=== PATIENT | male | born 1960 | race Two or more races ===

== ENCOUNTER → 2020-08-23 15:06 | Outpatient (BNVA) | payer OTHER, SELFPAY | PROVIDERS: PCP Family Medicine; Visit Provider Internal Medicine | DX: J44.9 Chronic obstructive pulmonary disease, unspecified (principal); J30.9 Allergic rhinitis, unspecified | CPT/HCPCS: 99212 ==

== ENCOUNTER → 2020-08-24 14:26 | Outpatient (BNVA) | payer OTHER, SELFPAY | PROVIDERS: PCP Internal Medicine; Visit Provider Nurse Practitioner | DX: Z76.89 Persons encountering health services in other specified circumstances (principal) | CPT/HCPCS: Q3014 ==

== ENCOUNTER 2020-08-29 13:26 | Outpatient (REF) | payer OTHER, SELFPAY ==
[2020-08-30 13:52] LABS: Alpha 1 Anti-trypsin 143 mg/dL (83-199)
== END 2020-08-29 13:27 | disposition home or self-care (01) ==
LOC: HO.LAB 13:26
PROVIDERS: PCP Family Medicine; Visit Provider Internal Medicine
DX: J44.9 Chronic obstructive pulmonary disease, unspecified (principal)
CPT/HCPCS: 36415; 82103

== ENCOUNTER → 2021-02-14 15:48 | Outpatient (BNVA) | payer OTHER, SELFPAY | PROVIDERS: PCP Family Medicine; Visit Provider Internal Medicine | DX: J44.9 Chronic obstructive pulmonary disease, unspecified (principal); J30.9 Allergic rhinitis, unspecified | CPT/HCPCS: 99212 ==

== ENCOUNTER → 2021-02-15 14:26 | Outpatient (BNVA) | payer OTHER, SELFPAY | PROVIDERS: PCP Family Medicine; Visit Provider Nurse Practitioner | DX: K64.9 Unspecified hemorrhoids (principal); K21.9 Gastro-esophageal reflux disease without esophagitis; Z98.890 Other specified postprocedural states | CPT/HCPCS: Q3014 ==

== ENCOUNTER 2021-03-13 12:50 | Outpatient (REF) | payer OTHER, SELFPAY ==
--- NOTE | 2021-03-13 14:05 | PFT_ITS ---
INDICATION: Asthma. SPIROMETRY: The FEV1 to FVC 37% with an FEV1 of 1.03 L, which is 33% predicted and an FVC of 2.76 L, which is 68% predicted. Post bronchodilator shows significant improvement of the FVC by 27% and the FEV1 by 18%. The patient also has significant small airways disease and the maximum voluntary ventilation only 32% predicted. LUNG VOLUMES: Total lung capacity 130% predicted with residual volume of 283% predicted. DIFFUSION CAPACITY: DLCO 78% predicted. COMPARISONS: PFTs from 2019. INTERPRETATION: There is an obstructive ventilatory defect consistent with severe COPD. The patient did have a significant response to bronchodilators noted. There is also a severe decrease in maximum voluntary ventilation secondary to deconditioning and also worsening dynamic inspiratory capacity. The patient has significant air trapping and hyperinflation due to the COPD. In addition to that, there is a mild diffusion impairment. When compared to 2019, there is a significant decrease in the FVC, significant decrease in the FEV1, significant increase in the total lung capacity, and trend decrease in the diffusion capacity. Clinical correlation warranted. Chivo Mathias MD MR/MODL / [id number]
== END 2021-03-13 12:51 | disposition home or self-care (01) ==
LOC: HO.RESP 12:50
PROVIDERS: PCP Family Medicine; Visit Provider Internal Medicine
DX: J44.9 Chronic obstructive pulmonary disease, unspecified (principal)
CPT/HCPCS: 94060; 94727; 94729

== ENCOUNTER → 2021-04-10 12:57 | Outpatient (BNVA) | payer OTHER, SELFPAY | PROVIDERS: PCP Family Medicine; Visit Provider Internal Medicine | DX: J44.9 Chronic obstructive pulmonary disease, unspecified (principal); J30.9 Allergic rhinitis, unspecified | CPT/HCPCS: 99212 ==

== ENCOUNTER → 2021-07-31 15:21 | Outpatient (BNVA) | payer OTHER, SELFPAY | PROVIDERS: PCP Family Medicine; Visit Provider Internal Medicine | DX: J44.9 Chronic obstructive pulmonary disease, unspecified (principal); J30.9 Allergic rhinitis, unspecified; R05.9 Cough, unspecified | CPT/HCPCS: 99212 ==

== ENCOUNTER → 2021-08-19 13:42 | Outpatient (BNVA) | payer OTHER, SELFPAY | PROVIDERS: PCP Family Medicine; Referring Provider Family Medicine; Visit Provider Nurse Practitioner | DX: K21.9 Gastro-esophageal reflux disease without esophagitis (principal); K64.9 Unspecified hemorrhoids | CPT/HCPCS: 99212 ==

== ENCOUNTER → 2021-09-04 15:33 | Outpatient (BNVA) | payer OTHER, SELFPAY | PROVIDERS: PCP Family Medicine; Visit Provider Internal Medicine | DX: J44.9 Chronic obstructive pulmonary disease, unspecified (principal); J30.9 Allergic rhinitis, unspecified; R05.9 Cough, unspecified | CPT/HCPCS: 99212 ==

== ENCOUNTER → 2022-02-18 13:53 | Outpatient (BNVA) | payer OTHER, SELFPAY | PROVIDERS: PCP Family Medicine; Referring Provider Family Medicine; Visit Provider Nurse Practitioner | DX: K21.9 Gastro-esophageal reflux disease without esophagitis (principal); Z87.19 Personal history of other diseases of the digestive system; Z79.899 Other long term (current) drug therapy | CPT/HCPCS: 99212 ==

== ENCOUNTER → 2022-03-19 15:49 | Outpatient (BNVA) | payer OTHER, SELFPAY | PROVIDERS: PCP Family Medicine; Visit Provider Internal Medicine | DX: J44.9 Chronic obstructive pulmonary disease, unspecified (principal); J30.9 Allergic rhinitis, unspecified; R05.9 Cough, unspecified | CPT/HCPCS: 99212 ==

== ENCOUNTER → 2022-04-29 14:00 | Outpatient (BNVA) | payer OTHER, SELFPAY | PROVIDERS: PCP Family Medicine; Visit Provider Internal Medicine | DX: J44.9 Chronic obstructive pulmonary disease, unspecified (principal); J30.9 Allergic rhinitis, unspecified; R05.9 Cough, unspecified; R53.83 Other fatigue | CPT/HCPCS: 99212 ==

== ENCOUNTER → 2022-09-17 15:55 | Outpatient (BNVA) | payer OTHER, SELFPAY | PROVIDERS: PCP Family Medicine; Visit Provider Internal Medicine | DX: J44.9 Chronic obstructive pulmonary disease, unspecified (principal); J30.9 Allergic rhinitis, unspecified | CPT/HCPCS: 99212 ==

== ENCOUNTER → 2022-10-09 16:04 | Outpatient (BNVA) | payer OTHER, SELFPAY | PROVIDERS: PCP Family Medicine; Visit Provider Nurse Practitioner | DX: K21.9 Gastro-esophageal reflux disease without esophagitis (principal) | CPT/HCPCS: 99212 ==

== ENCOUNTER 2023-03-11 16:02 | Outpatient (AMB) | payer OTHER, SELFPAY ==
[2023-03-11 16:10] VITALS: BP 112/70; PULSE 79; O2SAT 97; BMI 23.1
--- NOTE | 2023-03-11 16:10 | A.OFFVIS_ITS ---
Intake Vital Signs 03/11/23 16:10 Height 5 ft 6 in Weight 143 lb 4.807 oz BMI 23.1 BP 112/70 Blood Pressure Location Lt brachial Position Sitting Pulse 79 Pulse Source Pulse Oximeter Pulse Oximetry (%) 97 Oxygen Delivery Method Room Air Intake Visit Reasons: copd Intake Note: pt is here for follow up and doing good, has a cough but only a few times. pt would like to have a mask for nebulizer use. 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 HE HAS CHRONIC ALLERGIC RHINITIS AND ASTHMA/COPD. WITH THE CURRENT REGIMEN HIS BREATHING IS WELL CONTROLLED, HE CONTINUES TO HAVE NASAL CONGESTION WITH SOME POSTNASAL DRIP. SOMETIMES HE USES IPRATROPIUM ALBUTEROL IN THE NEBULIZER, AND IS ASKING IF HE CAN GET A FACEMASK TO USE THE NEBULIZER. ANYWAY THE BREATHING STATUS HAS REMAINED VERY STABLE. [facility] Medical History Allergic rhinitis Asthma-COPD overlap syndrome Cough Fatigue Surgical History Hx of cholecystectomy Hx of colonoscopy Family History Family/Other No problems noted. Social History Alcohol intake: current Alcohol intake frequency: holidays/special occasions only Patient Tobacco Use Status: Former Tobacco user Review of Systems Const All systems reviewed & are unremarkable except as noted in HPI and below Eyes Reports no additional complaints ENT Reports nasal congestion (Intermittent, ) Card Denies chest pain, Denies irregular heart rhythm and Denies leg edema Resp Reports as per HPI GI Reports no additional complaints Reports no additional complaints Musc Reports back pain Skin/Breast Reports system reviewed and no additional complaints, except as documented Neuro Reports no additional complaints Psych Reports no additional complaints Endo Reports no additional complaints Aller/Immun Reports no additional complaints Physical Exam Vital Signs: Last Vital Signs Pulse 79 03/11/23 16:10 BP 112/70 03/11/23 16:10 Pulse Ox 97 03/11/23 16:10 Oxygen Delivery Method Room Air 03/11/23 16:10 BMI result Body Mass Index 23.1 Const General: healthy appearing (But of a thin build), comfortable, no acute distress, alert and awake Orientation/consciousness: patient oriented x3 HEENT Head: Yes normal to inspection General nose exam: No nasal polyps present and No nasal discharge present Face and sinus: Yes sinuses nontender Mouth: oropharynx normal Throat: Yes posterior oropharynx normal Eyes General: appearance normal, both eyes and all related structures Neck Neck: Yes normal visual inspection, Yes no lymphadenopathy, Yes trachea midline and Yes no JVD Thyroid: Thyroid normal Chest Chest palpation & inspection: normal inspection of the chest, normal palpation of entire chest wall and no tenderness Resp Other: Percussion note is hyper-resonant. Breath sounds are distant with prolonged expiratory phase. No wheezes rhonchi or crepitations are heard. Cardio Palpation: normal PMI Rate: regular rate Rhythm: regular rhythm Heart sounds: no gallops and no murmurs GI Palpation (GI): Soft to palpation, nontender, No hepatosplenomegaly present and no masses Auscultation: normal bowel sounds Back/Spine/Pelvis Thoracic/Lumbar Spine: thoracic and lumbar spine normal to inspection Skin General skin exam: no rashes or lesions noted Neuro General: patient oriented x3 and no focal motor deficits Cranial nerves: Yes CN's II-XII intact bilaterally Extrem General: Yes normal to inspection, Yes no clubbing, cyanosis or edema and Yes no calf tenderness Psych Appearance: grossly normal and well kempt Speech and movement: Normal speech and movement present Assessment & Plan Assessment & Plan (1) Asthma-COPD overlap syndrome: Comment: HE DOES HAVE RATHER SEVERE DEGREE OF COPD/ASTHMA.OVERLAP SYNDROME . CLINICALLY HE IS DOING VERY WELL ON HIS CURRENT REGIMEN, EXCEPT FOR INTERMITTENT BOUTS OF COUGH . HIS DESCRIBED SYMPTOMS ARE EXPECTED, BECAUSE OF THE SEVERITY OF HIS COPD. TX CONTINUE WIXELA 500-50 INHALATION B.I.D. DUONEB . Solution in the nebulizer use 3 times a day regularly. Explained that he is better off using the Nebulizer with a mouth piece than the face mask . VENTOLIN HFA 2 PUFFS Q 4-6 HOURS ONLY P.R.N., MUCINEX 600 MG B.I.D. IT IS OTC ,, AND HE IS ADVISED TO USE IT ONLY PRN . Code(s): J44.9 - Chronic obstructive pulmonary disease, unspecified (2) Allergic rhinitis: Comment: HE HAS MILD ALLERGIC RHINITIS AND IS WELL CONTROLLED. TX MONTELUKAST 10 MG DAILY TO CONTINUE FLONASE 2 SPRAY EACH NOSTRIL DAILY. Code(s): J30.9 - Allergic rhinitis, unspecified (3) Cough: Comment: COUGH IS DUE TO ALLERGIC RHINITIS AND CHRONIC OBSTRUCTIVE PULMONARY DISEASE. TX : as under asthma/copd Code(s): R05.9 - Cough, unspecified Coding Level of Care Code Est Pt Level 3 (22661) Diagnoses Asthma-COPD overlap syndrome J44.9 Allergic rhinitis J30.9 Cough R05.9
== END 2023-03-11 16:25 | disposition home or self-care (01) ==
PROVIDERS: PCP Family Medicine; Visit Provider Internal Medicine
DX: J44.9 Chronic obstructive pulmonary disease, unspecified (principal); J30.9 Allergic rhinitis, unspecified; R05.9 Cough, unspecified
CPT/HCPCS: 99213

== ENCOUNTER → 2023-03-11 16:02 | Outpatient (BNVA) | payer OTHER, SELFPAY | PROVIDERS: Visit Provider Internal Medicine | DX: J44.9 Chronic obstructive pulmonary disease, unspecified (principal); J30.9 Allergic rhinitis, unspecified; R05.9 Cough, unspecified | CPT/HCPCS: 99212 ==

== ENCOUNTER 2023-04-24 14:04 | Outpatient (AMB) | payer OTHER, SELFPAY ==
[2023-04-24 14:07] VITALS: BP 106/65; PULSE 80; BMI 23.2
--- NOTE | 2023-04-24 14:07 | MHC.OFFVIS ---
Intake Vital Signs 04/24/23 14:07 Height 5 ft 6 in Weight 143 lb 11.862 oz BMI 23.2 BP 106/65 Blood Pressure Location Lt brachial Position Sitting Pulse 80 Intake Visit Reasons: 6 months f/u GERD Intake Note: Patient presents to in office visit today in 6 months follow up of GERD. CC: Patient reports doing well and denies having any new GI symptoms or concerns today. 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 His bowels are also moving w/o problem. He remains satisfied with his regimen. Return office visit in 6 months. Medications: Refilled famotidine (Pepcid ) 40 mg PO BID 30 d ays 60 tabs 6RF TODAY'S VISIT [place]ian #Addy Henderson He continues to do well on the bid famotidine. His bowels are also moving w/o problem. He remains satisfied with his regimen. No problems with hemorrhoids either. ROV 6 mos. PFSH Medical History Fatigue Cough Allergic rhinitis Asthma-COPD overlap syndrome Surgical History (Updated 06/04/23 @ 18:54 by GABBY Rose) Hx of colonoscopy Hx of cholecystectomy Family History Family/Other No problems noted. Social History Alcohol intake: current Alcohol intake frequency: holidays/special occasions only Patient Tobacco Use Status: Former Tobacco user Review of Systems Const Denies fatigue, Denies fever(s), Denies night sweats, Denies poor appetite and Denies weight loss ENT Reports Normal hearing present, Denies dental pain, Denies dysphagia, Denies hearing loss, Denies mouth pain, Denies odynophagia, Denies throat swelling, Denies tongue swelling and Reports other (Dentition adequate) Card Reports no additional complaints Resp Reports no additional complaints GI Denies abdominal pain, Denies melena, Denies bloating, Denies hematochezia, Denies constipation, Denies GI cramping, Denies dysphagia, Denies excessive flatus, Denies early satiety, Reports heartburn, Denies diarrhea, Denies nausea, Denies odynophagia, Denies vomiting and Denies hematemesis Skin/Breast Denies pruritus, Denies lesions, Denies rash and Denies jaundice Neuro Reports Normal hearing present and Denies Abnormal speech present Endo Denies fatigue Aller/Immun Denies throat swelling and Denies tongue swelling Physical Exam Vital Signs: Last Vital Signs Pulse 80 04/24/23 14:07 BP 106/65 04/24/23 14:07 BMI result Body Mass Index 23.2 Const General: cooperative, no acute distress, well developed and well groomed Nutritional Appearance: average body habitus and well nourished Orientation/consciousness: oriented to person, oriented to place and oriented to time Limitations: language barrier HEENT Head: Yes normocephalic and Yes atraumatic Eyes General: appearance normal, both eyes and all related structures Pupils: Equal, round and reactive pupils present Neck Neck: Yes normal visual inspection and Yes no lymphadenopathy Thyroid: Thyroid normal Resp Effort & Inspection: normal respiratory effort and able to speak in complete sentences Auscultation: clear to auscultation bilaterally Cardio Rate: regular rate Rhythm: regular rhythm Heart sounds: Normal, physiologic split S2 sound present Peripheral pulses: radial pulses present and posterior tibial pulses present GI Inspection: No distended and No Abdominal panniculus present Palpation (GI): Soft to palpation, nontender, no guarding, not rigid and No hepatosplenomegaly present Percussion: Yes normal to percussion Auscultation: normal bowel sounds Rectal Exam - Male: Yes deferred Skin General skin exam: no rashes or lesions noted, turgor normal, skin not dry, no jaundice, No spider nevi and no striae Rashes: no rashes Nails: normal Neuro General: oriented to person, oriented to place and oriented to time Cranial nerves: Yes Equal, round and reactive pupils present and Yes Normal hearing present Speech: No Abnormal speech present Extrem General: Yes normal to inspection, No clubbing, No cyanosis and No edema Psych Appearance: grossly normal and well kempt Mental Status: mental status grossly normal Speech and movement: Normal speech and movement present Affect: normal affect Attitude: cooperative Thought process: Normal thought process present and not confabulating Thought content: Normal thought content present Insight: Limited insight present (Psych) Judgement: Limited judgement present (Psych) Assessment & Plan Assessment & Plan (1) GERD (gastroesophageal reflux disease): Code(s): K21.9 - Gastro-esophageal reflux disease without esophagitis Plan: Michael Arambula LIve He continues to do well on the bid famotidine. His bowels are also moving w/o problem. He remains satisfied with his regimen. No problems with hemorrhoids either. ROV 6 mos. (2) Bleeding hemorrhoids: Comment: Had hemorrhoidectomy and no more bleeding. Code(s): K64.9 - Unspecified hemorrhoids Plan Michael Arambula LIve He continues to do well on the bid famotidine. His bowels are also moving w/o problem. He remains satisfied with his regimen. No problems with hemorrhoids either. ROV 6 mos. Medications: Refilled famotidine (Pepcid) 40 mg PO BID 60 tabs 6RF 30 days Coding Level of Care Code Est Pt Level 3 (26274) Diagnoses GERD (gastroesophageal reflux disease) K21.9 Bleeding hemorrhoids K64.9
== END 2023-04-24 14:20 | disposition home or self-care (01) ==
PROVIDERS: Visit Provider Nurse Practitioner
DX: K21.9 Gastro-esophageal reflux disease without esophagitis (principal); K64.9 Unspecified hemorrhoids
CPT/HCPCS: 99213

== ENCOUNTER → 2023-04-24 14:04 | Outpatient (BNVA) | payer OTHER, SELFPAY | PROVIDERS: Visit Provider Nurse Practitioner | DX: K21.9 Gastro-esophageal reflux disease without esophagitis (principal); Z90.49 Acquired absence of other specified parts of digestive tract; Z98.890 Other specified postprocedural states | CPT/HCPCS: 99212 ==

== ENCOUNTER 2023-10-13 14:12 | Outpatient (AMB) | payer OTHER, SELFPAY ==
--- NOTE | 2023-10-13 14:23 | MHC.OFFVIS ---
Intake Vital Signs 10/13/23 14:24 Height 5 ft 6 in Weight 144 lb 6.444 oz BMI 23.3 BP 110/70 Blood Pressure Location Lt brachial Position Sitting Pulse 80 Pulse Source Pulse Oximeter Pulse Oximetry (%) 95 Oxygen Delivery Method Room Air Intake Visit Reasons: copd Intake Note: pt is here for follow upand states he id little tight, with some wheeze and cough, especially wheezing, please try sending in generic advair to check for coverage Assistant Credit Manager Required: Yes Assistant Credit Manager Name: [id number] Allergies No Known Allergies [No Known Allergies*] Allergy (Verified 10/13/23 14:38) Medication List - Last Reconciled 10/13/23 by Chelsey Kim MD albuterol sulfate 90 mcg/actuation (Ventolin HFA) 2 puffs PO Q6H PRN famotidine (Pepcid) 40 mg PO BID 30 days fluticasone propion-salmeterol 500-50 mcg/dose 1 ea PO BID ipratropium-albuterol 0.5 mg-3 mg(2.5 mg base)/3 mL 3 mL inhalation TID loratadine 10 mg PO DAILY montelukast 10 mg PO BEDTIME Do you need a note to return to daycare/school/sports/work: No HPI copd HPI Details 62 years old Gambian-speaking gentleman is here for 6 months follow-up. He is being treated for chronic allergic rhinitis and asthma/COPD overlap syndrome. His main issue is that he gets frequent bouts of nasal congestion, which is somewhat worse now in the spring season. He also gets intermittent cough, but no wheezing. He is short of breath with he walks fast or climbs stairs but not any worse than before. He uses his meds regularly, looking for generic version of Advair. PFSH Medical History Fatigue Cough Allergic rhinitis Asthma-COPD overlap syndrome Surgical History Hx of colonoscopy Hx of cholecystectomy Family History Family/Other No problems noted. Social History Alcohol intake: current Alcohol intake frequency: holidays/special occasions only Patient Tobacco Use Status: Former Tobacco user Review of Systems Const All systems reviewed & are unremarkable except as noted in HPI and below Eyes Reports no additional complaints ENT Reports nasal congestion (Intermittent, ) Card Denies chest pain, Denies irregular heart rhythm and Denies leg edema Resp Reports as per HPI GI Reports no additional complaints Reports no additional complaints Musc Reports back pain Skin/Breast Reports system reviewed and no additional complaints, except as documented Neuro Reports no additional complaints Psych Reports no additional complaints Endo Reports no additional complaints Aller/Immun Reports no additional complaints Physical Exam Vital Signs: Last Vital Signs Pulse 80 10/13/23 14:24 BP 110/70 10/13/23 14:24 Pulse Ox 95 10/13/23 14:24 Oxygen Delivery Method Room Air 10/13/23 14:24 BMI result Body Mass Index 23.3 Const General: healthy appearing (But of a thin build), comfortable, no acute distress, alert and awake Orientation/consciousness: patient oriented x3 HEENT Head: Yes normal to inspection General nose exam: No nasal polyps present and No nasal discharge present Face and sinus: Yes sinuses nontender Mouth: oropharynx normal Throat: Yes posterior oropharynx normal Eyes General: appearance normal, both eyes and all related structures Neck Neck: Yes normal visual inspection, Yes no lymphadenopathy, Yes trachea midline and Yes no JVD Thyroid: Thyroid normal Chest Chest palpation & inspection: normal inspection of the chest, normal palpation of entire chest wall and no tenderness Resp Other: Percussion note is hyper-resonant. Breath sounds are distant with prolonged expiratory phase. No wheezes rhonchi or crepitations are heard. Cardio Palpation: normal PMI Rate: regular rate Rhythm: regular rhythm Heart sounds: no gallops and no murmurs GI Palpation (GI): Soft to palpation, nontender, No hepatosplenomegaly present and no masses Auscultation: normal bowel sounds Back/Spine/Pelvis Thoracic/Lumbar Spine: thoracic and lumbar spine normal to inspection Skin General skin exam: no rashes or lesions noted Neuro General: patient oriented x3 and no focal motor deficits Cranial nerves: Yes CN's II-XII intact bilaterally Extrem General: Yes normal to inspection, Yes no clubbing, cyanosis or edema and Yes no calf tenderness Psych Appearance: grossly normal and well kempt Speech and movement: Normal speech and movement present Assessment & Plan Assessment & Plan (1) Asthma-COPD overlap syndrome: Comment: HE DOES HAVE RATHER SEVERE DEGREE OF COPD/ASTHMA.OVERLAP SYNDROME . CLINICALLY HE IS DOING WELL ON HIS CURRENT REGIMEN, EXCEPT FOR INTERMITTENT BOUTS OF COUGH . THE DESCRIBED SYMPTOMS ARE EXPECTED, BECAUSE OF THE SEVERITY OF HIS COPD. Code(s): J44.9 - Chronic obstructive pulmonary disease, unspecified Plan: TX CONTINUE WIXELA 500-50 INHALATION B.I.D. DUONEB . Solution in the nebulizer use 3 times a day regularly. Explained that he is better off using the Nebulizer with a mouth piece than the face mask . VENTOLIN HFA 2 PUFFS Q 4-6 HOURS ONLY P.R.N., MUCINEX 600 MG B.I.D. IT IS OTC ,, AND HE IS ADVISED TO USE IT ONLY PRN . (2) Allergic rhinitis: Comment: HE HAS MILD ALLERGIC RHINITIS AND IS WELL CONTROLLED. Code(s): J30.9 - Allergic rhinitis, unspecified Plan: TX MONTELUKAST 10 MG DAILY TO CONTINUE FLONASE 2 SPRAY EACH NOSTRIL DAILY. (3) Cough: Comment: COUGH IS DUE TO ALLERGIC RHINITIS AND CHRONIC OBSTRUCTIVE PULMONARY DISEASE. Code(s): R05.9 - Cough, unspecified Plan: [place] : as under asthma/copd Coding Level of Care Code Est Pt Level 3 (77310) Diagnoses Asthma-COPD overlap syndrome J44.9 Allergic rhinitis J30.9 Cough R05.9
[2023-10-13 14:24] VITALS: BP 110/70; PULSE 80; O2SAT 95; BMI 23.3
== END 2023-10-13 14:41 | disposition home or self-care (01) ==
PROVIDERS: PCP Family Medicine; Visit Provider Internal Medicine
DX: J44.9 Chronic obstructive pulmonary disease, unspecified (principal); J30.9 Allergic rhinitis, unspecified; R05.9 Cough, unspecified
CPT/HCPCS: 99213

== ENCOUNTER → 2023-10-13 14:12 | Outpatient (BNVA) | payer OTHER, SELFPAY | PROVIDERS: PCP Family Medicine; Visit Provider Internal Medicine | DX: J44.9 Chronic obstructive pulmonary disease, unspecified (principal); J30.9 Allergic rhinitis, unspecified; R05.9 Cough, unspecified; Z79.899 Other long term (current) drug therapy | CPT/HCPCS: 99212 ==

== ENCOUNTER 2023-11-24 15:40 | Outpatient (AMB) | payer OTHER, SELFPAY ==
--- NOTE | 2023-11-24 15:44 | MHC.OFFVIS ---
Vital Signs 11/24/23 15:47 Height 5 ft 6 in Weight 143 lb 4.807 oz BMI 23.1 Blood Pressure Location Rt brachial Position Sitting Intake Visit Reasons: Follow up 6 months Intake Note: Patient in office in office today in 6 months follow up of GERD. CC: No complains today, patient states that his symptoms are well manage with medications. Relationship Assoc Required: No Accompanied by: Spouse Allergies No Known Allergies [No Known Allergies*] Allergy (Verified 11/24/23 15:49) HPI HPI Follow up 6 months: Details: Assessment & Plan (1) GERD (gastroesophageal reflux disease): Code(s): K21.9 - Gastro-esophageal reflux disease without esophagitis Plan Prydeinig #Lesa live He continues to do well on the bid famotidine. His bowels are also moving w/o problem. He remains satisfied with his regimen. Return office visit in 6 months. Medications: Refilled famotidine (Pepcid) 40 mg PO BID 30 days 60 tabs 6RF TODAY'S VISIT Prydeinig #Mariposa Smith He is here today with his who is supportive. He continues to do well on his famotidine twice a day. He is also careful to watch what he eats avoid to greasy food, and avoid GERD triggers. He has no new medical problems to tell us about today. He continues to be quite happy with his GI regimen. ROV 6 mos. PFSH Medical History Fatigue Cough Allergic rhinitis Asthma-COPD overlap syndrome Surgical History Hx of colonoscopy Hx of cholecystectomy Family History Family/Other No problems noted. Social History Alcohol intake: current Alcohol intake frequency: holidays/special occasions only Patient Tobacco Use Status: Former Tobacco user Review of Systems Const Denies fatigue, Denies fever(s), Denies night sweats, Denies poor appetite and Denies weight loss ENT Reports Normal hearing present, Denies dental pain, Denies dysphagia, Denies hearing loss, Denies mouth pain, Denies odynophagia, Denies throat swelling, Denies tongue swelling and Reports other (Dentition adequate) Card Reports no additional complaints Resp Reports no additional complaints GI Details: Denies abdominal pain, Denies melena, Denies bloating, Denies hematochezia, Denies constipation, Denies GI cramping, Denies dysphagia, Denies excessive flatus, Denies early satiety, Reports heartburn, Denies diarrhea, Denies nausea, Denies odynophagia, Denies vomiting and Denies hematemesis Skin/Breast Denies pruritus, Denies lesions, Denies rash and Denies jaundice Neuro Reports Normal hearing present and Denies Abnormal speech present Endo Denies fatigue Aller/Immun Denies throat swelling and Denies tongue swelling Physical Exam Vital Signs: BMI result Body Mass Index 23.1 Const General: cooperative, no acute distress, well developed and well groomed Nutritional Appearance: average body habitus and well nourished Orientation/consciousness: oriented to person, oriented to place and oriented to time Limitations: language barrier HEENT Head: Yes normocephalic and Yes atraumatic Eyes General: appearance normal, both eyes and all related structures Pupils: Equal, round and reactive pupils present Neck Neck: Yes normal visual inspection and Yes no lymphadenopathy Thyroid: Thyroid normal Resp Effort & Inspection: normal respiratory effort and able to speak in complete sentences Auscultation: clear to auscultation bilaterally Cardio Rate: regular rate Rhythm: regular rhythm Heart sounds: Normal, physiologic split S2 sound present Peripheral pulses: radial pulses present and posterior tibial pulses present GI Inspection: No distended and No Abdominal panniculus present Palpation (GI): Soft to palpation, nontender, no guarding, not rigid and No hepatosplenomegaly present Percussion: Yes normal to percussion Auscultation: normal bowel sounds Rectal Exam - Male: Yes deferred Skin General skin exam: no rashes or lesions noted, turgor normal, skin not dry, no jaundice, No spider nevi and no striae Rashes: no rashes Nails: normal Neuro General: oriented to person, oriented to place and oriented to time Cranial nerves: Yes Equal, round and reactive pupils present and Yes Normal hearing present Speech: No Abnormal speech present Extrem General: Yes normal to inspection, No clubbing, No cyanosis and No edema Psych Appearance: grossly normal and well kempt Mental Status: mental status grossly normal Speech and movement: Normal speech and movement present Affect: normal affect Attitude: cooperative Thought process: Normal thought process present and not confabulating Thought content: Normal thought content present Insight: Fair insight present (Psych) Judgement: Fair judgement present (Psych) Assessment & Plan Assessment & Plan (1) GERD (gastroesophageal reflux disease): Code(s): K21.9 - Gastro-esophageal reflux disease without esophagitis Category: Medical Plan Prydeinig #Mariposa Live He is here today with his who is supportive. He continues to do well on his famotidine twice a day. He is also careful to watch what he eats avoid to greasy food, and avoid GERD triggers. He has no new medical problems to tell us about today. He continues to be quite happy with his GI regimen. ROV 6 mos. Medications: Refilled famotidine (Pepcid) 40 mg PO BID 60 tabs 6RF 30 days Coding Level of Care Code Est Pt Level 3 (72790) Diagnoses GERD (gastroesophageal reflux disease) K21.9
[2023-11-24 15:47] VITALS: BMI 23.1
== END 2023-11-24 16:17 | disposition home or self-care (01) ==
PROVIDERS: PCP Family Medicine; Visit Provider Nurse Practitioner
DX: K21.9 Gastro-esophageal reflux disease without esophagitis (principal)
CPT/HCPCS: 99213

== ENCOUNTER → 2023-11-24 15:40 | Outpatient (BNVA) | payer OTHER, SELFPAY | PROVIDERS: PCP Family Medicine; Visit Provider Nurse Practitioner | DX: K21.9 Gastro-esophageal reflux disease without esophagitis (principal) | CPT/HCPCS: 99212 ==

== ENCOUNTER 2024-04-07 11:14 | Outpatient (REF) | payer OTHER, SELFPAY ==
[2024-04-07 12:59] LABS: MANUAL DIFF FLAG NO
[2024-04-07 13:07] LABS: Basophils Percent Auto 0.3 % (0-2); Eosinophils Absolute Auto 0.1 X10*3/uL (0.0-0.4); Eosinophils Percent Auto 2.1 % (0-4); Hematocrit 45.1 % (42.0-52.0); Hemoglobin 14.5 g/dl (14.0-18.0); Imm Gran Abs Auto 0.01 X10*3/uL (0.00-0.03); Imm Gran Pct Auto 0.1 % (0.0-0.4); Lymphocytes Absolute Auto 1.8 X10*3/uL (1.2-4.9); Lymphocytes Percent Auto 26.8 % (20-40); Mean Corpuscular HGB Conc 32.2 g/dl (31.0-36.0); Mean Corpuscular Hemoglobin 30.9 pg (27.0-33.0); Monocytes Absolute Auto 0.7 X10*3/uL (0.1-1.2); Monocytes Percent Auto 10.8 % (2-11); Neutrophils Absolute Auto 4.1 x10*3/uL (2.0-8.3); Neutrophils Percent Auto 59.9 % (45-73); Platelet Count 317 X10*3/uL (160-400); Red Cell Distribution Width 14.3 % (11.0-16.0); White Blood Count 6.8 X10*3/uL (4.8-10.8)
[2024-04-07 13:28] LABS: Alanine Aminotransferase 15 U/L (0-40); Albumin Level 4.4 g/dL (3.5-5.0); Alkaline Phosphatase 63 U/L (39-117); Anion Gap 11 (12-20); Aspartate Amino Transferase 17 U/L (5-37); Bilirubin Total 0.6 mg/dL (0.0-1.0); Blood Urea Nitrogen 15 mg/dL (9-16); Carbon Dioxide 28 mmol/L (22-29); Chloride 108 mmol/L (96-108); Cholesterol 176 mg/dL (<200); Estimated Glomerular Filt Rate > 60; Glucose Random 111 mg/dL (60-115); HDL Cholesterol 77 mg/dL (>40); LDL Cholesterol Calculated 86 mg/dL (<100); Potassium 4.3 mmol/L (3.3-5.1); Sodium 143 mmol/L (135-145); Total Protein 7.1 g/dL (6.5-8.0); Triglycerides 68 mg/dL (<150)
== END 2024-04-07 11:15 | disposition home or self-care (01) ==
LOC: HO.HHCL 11:14
PROVIDERS: Visit Provider Family Medicine
DX: Z13.9 Encounter for screening, unspecified (principal)
CPT/HCPCS: 36415; 80053; 80061; 85025

== ENCOUNTER 2024-04-12 14:18 | Outpatient (AMB) | payer OTHER, SELFPAY ==
[2024-04-12 14:24] VITALS: BP 102/64; PULSE 81; O2SAT 92; BMI 22.4
--- NOTE | 2024-04-12 14:24 | A.OFFVIS_ITS ---
Vital Signs 04/12/24 14:24 Height 5 ft 6 in Weight 139 lb BMI 22.4 BP 102/64 Blood Pressure Location Lt brachial Position Sitting Pulse 81 Pulse Source Pulse Oximeter Pulse Oximetry (%) 92 Oxygen Delivery Method Room Air Intake Visit Reasons: COPD Intake Note: pt is here for follow up and states his breathing is good, he does have some short of breath in am, he takes meds and treatment and goes about his day. Golf Course Architect Required: Yes Golf Course Architect Services: Golf Course Architect Present Golf Course Architect Name: Ana Allergies No Known Allergies [No Known Allergies*] Allergy (Verified 04/12/24 14:39) Medication List - Last Reconciled 04/12/24 by Chelsey Kim MD albuterol sulfate 90 mcg/actuation (Ventolin HFA) 2 puffs PO Q6H PRN famotidine (Pepcid) 40 mg PO BID 30 days fluticasone propion-salmeterol 500-50 mcg/dose 1 ea PO BID ipratropium-albuterol 0.5 mg-3 mg(2.5 mg base)/3 mL 3 mL inhalation TID loratadine 10 mg PO DAILY montelukast 10 mg PO BEDTIME Do you need a note to return to daycare/school/sports/work: No HPI HPI COPD: Details: THIS 63 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 HE IS BEING TREATED FOR ASTHMA/CHRONIC OBSTRUCTIVE PULMONARY DISEASE AND ALLERGIC RHINITIS. HE SAY IS LONG HE IS USING HIS MEDS HE IS. OKAY AND STABLE HE HAS HAD NO RECENT RESPIRATORY INFECTION. THERE IS NO ACTIVE NASAL CONGESTION. HE HAS INTERMITTENT COUGH, AND GETS SHORT OF BREATH ON WALKING AROUND. HE HAS HAD NO ATTACKS OF ASTHMA. [facility] Medical History Fatigue Cough Allergic rhinitis Asthma-COPD overlap syndrome Surgical History Hx of colonoscopy Hx of cholecystectomy Family History Family/Other No problems noted. Social History Alcohol intake: current Alcohol intake frequency: holidays/special occasions only Patient Tobacco Use Status: Former Tobacco user Review of Systems Const All systems reviewed & are unremarkable except as noted in HPI and below Eyes Reports no additional complaints ENT Reports nasal congestion (Intermittent, ) Card Denies chest pain, Denies irregular heart rhythm and Denies leg edema Resp Reports as per HPI GI Reports no additional complaints Reports no additional complaints Musc Reports back pain Skin/Breast Reports system reviewed and no additional complaints, except as documented Neuro Reports no additional complaints Psych Reports no additional complaints Endo Reports no additional complaints Aller/Immun Reports no additional complaints Physical Exam Vital Signs: Last Vital Signs Pulse 81 04/12/24 14:24 BP 102/64 04/12/24 14:24 Pulse Ox 92 04/12/24 14:24 Oxygen Delivery Method Room Air 04/12/24 14:24 BMI result Body Mass Index 22.4 Const General: healthy appearing (But of a thin build), comfortable, no acute distress, alert and awake Orientation/consciousness: patient oriented x3 HEENT Head: Yes normal to inspection General nose exam: No nasal polyps present and No nasal discharge present Face and sinus: Yes sinuses nontender Mouth: oropharynx normal Throat: Yes posterior oropharynx normal Eyes General: appearance normal, both eyes and all related structures Neck Neck: Yes normal visual inspection, Yes no lymphadenopathy, Yes trachea midline and Yes no JVD Thyroid: Thyroid normal Chest Chest palpation & inspection: normal inspection of the chest, normal palpation of entire chest wall and no tenderness Resp Other: Percussion note is hyper-resonant. Breath sounds are distant with prolonged expiratory phase. No wheezes rhonchi or crepitations are heard. Cardio Palpation: normal PMI Rate: regular rate Rhythm: regular rhythm Heart sounds: no gallops and no murmurs GI Palpation (GI): Soft to palpation, nontender, No hepatosplenomegaly present and no masses Auscultation: normal bowel sounds Back/Spine/Pelvis Thoracic/Lumbar Spine: thoracic and lumbar spine normal to inspection Skin General skin exam: no rashes or lesions noted Neuro General: patient oriented x3 and no focal motor deficits Cranial nerves: Yes CN's II-XII intact bilaterally Extrem General: Yes normal to inspection, Yes no clubbing, cyanosis or edema and Yes no calf tenderness Psych Appearance: grossly normal and well kempt Speech and movement: Normal speech and movement present Results Reviewed Results Reviewed: SPIROMETRY FVC 62%, FEV1 25 %, FEF 25-75 7% C/W VERY SEVERE OBSTRUCTIVE AIRWAY DISORDER. SIMILAR TO THE RESULTS IN 2020 Assessment & Plan Assessment & Plan (1) Asthma-COPD overlap syndrome: Comment: HE DOES HAVE RATHER SEVERE DEGREE OF COPD/ASTHMA.OVERLAP SYNDROME . CLINICALLY HE IS DOING WELL ON HIS CURRENT REGIMEN, EXCEPT FOR INTERMITTENT BOUTS OF COUGH . THE DESCRIBED SYMPTOMS ARE EXPECTED, BECAUSE OF THE SEVERITY OF HIS COPD. Code(s): J44.9 - Chronic obstructive pulmonary disease, unspecified Category: Medical Plan: CONTINUE TO USE ADVAIR 500-50 1 INHALATION B.I.D.. AND IPRATROPIUM-ALBUTEROL SOLUTION IN THE NEBULIZER Q 6 HOURS WHILE AWAKE ( tid ) VENTOLIN HFA 2 PUFFS Q.4-6 HOURS P.R.N. FOR OUTDOORS HE WAS PRESCRIBED INCRUSE ELLIPTA BY HIS PCP. BUT I THINK LONG HE IS USING IPRATROPIUM IN THE NEBULIZER, HE DOES NOT HAVE TO USE INCRUSE ELLIPTA. (2) Allergic rhinitis: Comment: HE HAS MILD ALLERGIC RHINITIS AND IS WELL CONTROLLED. Code(s): J30.9 - Allergic rhinitis, unspecified Category: Medical Plan: CONTINUE MONTELUKAST 10 MG DAILY AND USE LORATADINE 10 MG ONCE A DAY P.R.N. Coding Level of Care Code Est Pt Level 3 (25457) Diagnoses Asthma-COPD overlap syndrome J44.9 Allergic rhinitis J30.9
== END 2024-04-12 14:58 | disposition home or self-care (01) ==
PROVIDERS: PCP Family Medicine; Visit Provider Internal Medicine
DX: J44.9 Chronic obstructive pulmonary disease, unspecified (principal); J30.9 Allergic rhinitis, unspecified
CPT/HCPCS: 99213

== ENCOUNTER → 2024-04-12 14:18 | Outpatient (BNVA) | payer OTHER, SELFPAY | PROVIDERS: PCP Family Medicine; Visit Provider Internal Medicine | DX: J44.9 Chronic obstructive pulmonary disease, unspecified (principal); J30.9 Allergic rhinitis, unspecified | CPT/HCPCS: 99212 ==

== ENCOUNTER → 2024-06-08 15:33 | Outpatient (BNVA) | payer OTHER, SELFPAY | PROVIDERS: PCP Family Medicine; Visit Provider Nurse Practitioner ==

== ENCOUNTER 2024-07-19 15:26 | Outpatient (AMB) | payer OTHER, SELFPAY ==
[2024-07-19 15:36] VITALS: BP 110/72; PULSE 82; O2SAT 96; BMI 23.5
--- NOTE | 2024-07-19 15:36 | MHC.OFFVIS ---
Vital Signs 07/19/24 15:36 Height 5 ft 6 in Weight 145 lb 8.081 oz BMI 23.5 BP 110/72 Blood Pressure Location Lt brachial Position Sitting Pulse 82 Pulse Source Pulse Oximeter Pulse Oximetry (%) 96 Oxygen Delivery Method Room Air Intake Visit Reasons: COPD Intake Note: pt is here for follow up and states little cough, he does have the wheeze almost all of the time., pt would like a scrpit for a humidifier. 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 HE COMES AFTER 6 MONTHS FOR FOLLOW-UP. DOES NOT SMOKE ANYMORE BUT HE DOES HAVE PAST HISTORY OF SMOKING. HAS MILD INTERMITTENT COUGH, HE GETS SHORT OF BREATH ON WALKING UP HILL OR CLIMBING STAIRS BUT NOT AT LEVEL GROUND. .HAS VERY LITTLE EXPECTORATION. NASAL CONGESTION OFF AND ON IS MOSTLY UNDER CONTROL. HE ALSO HAS GERD SYMPTOMS WHICH ARE CONTROLLED WITH FAMOTIDINE 40 MG DAILY. [facility] Medical History Fatigue Cough Allergic rhinitis Asthma-COPD overlap syndrome Surgical History Hx of colonoscopy Hx of cholecystectomy Family History Family/Other No problems noted. Social History Alcohol intake: current Alcohol intake frequency: holidays/special occasions only Patient Tobacco Use Status: Former Tobacco user Review of Systems Const All systems reviewed & are unremarkable except as noted in HPI and below Eyes Reports no additional complaints ENT Reports nasal congestion (Intermittent, ) Card Denies chest pain, Denies irregular heart rhythm and Denies leg edema Resp Reports as per HPI GI Reports no additional complaints Reports no additional complaints Musc Reports back pain Skin/Breast Reports system reviewed and no additional complaints, except as documented Neuro Reports no additional complaints Psych Reports no additional complaints Endo Reports no additional complaints Aller/Immun Reports no additional complaints Physical Exam Vital Signs: Last Vital Signs Pulse 82 07/19/24 15:36 BP 110/72 07/19/24 15:36 Pulse Ox 96 07/19/24 15:36 Oxygen Delivery Method Room Air 07/19/24 15:36 BMI result Body Mass Index 23.5 Const General: healthy appearing (But of a thin build), comfortable, no acute distress, alert and awake Orientation/consciousness: patient oriented x3 HEENT Head: Yes normal to inspection General nose exam: No nasal polyps present and No nasal discharge present Face and sinus: Yes sinuses nontender Mouth: oropharynx normal Throat: Yes posterior oropharynx normal Eyes General: appearance normal, both eyes and all related structures Neck Neck: Yes normal visual inspection, Yes no lymphadenopathy, Yes trachea midline and Yes no JVD Thyroid: Thyroid normal Chest Chest palpation & inspection: normal inspection of the chest, normal palpation of entire chest wall and no tenderness Resp Other: Percussion note is hyper-resonant. Breath sounds are distant with prolonged expiratory phase. No wheezes rhonchi or crepitations are heard. Cardio Palpation: normal PMI Rate: regular rate Rhythm: regular rhythm Heart sounds: no gallops and no murmurs GI Palpation (GI): Soft to palpation, nontender, No hepatosplenomegaly present and no masses Auscultation: normal bowel sounds Back/Spine/Pelvis Thoracic/Lumbar Spine: thoracic and lumbar spine normal to inspection Skin General skin exam: no rashes or lesions noted Neuro General: patient oriented x3 and no focal motor deficits Cranial nerves: Yes CN's II-XII intact bilaterally Extrem General: Yes normal to inspection, Yes no clubbing, cyanosis or edema and Yes no calf tenderness Psych Appearance: grossly normal and well kempt Speech and movement: Normal speech and movement present Assessment & Plan Assessment & Plan (1) Asthma-COPD overlap syndrome: Comment: HE DOES HAVE RATHER SEVERE DEGREE OF COPD/ASTHMA.OVERLAP SYNDROME . CLINICALLY HE IS DOING WELL ON HIS CURRENT REGIMEN, EXCEPT FOR INTERMITTENT BOUTS OF COUGH . THE DESCRIBED SYMPTOMS ARE EXPECTED, BECAUSE OF THE SEVERITY OF HIS COPD. Code(s): J44.9 - Chronic obstructive pulmonary disease, unspecified Category: Medical Plan: CONTINUE ADVAIR 500-51 INHALATION B.I.D. IPRATROPIUM-ALBUTEROL SOLUTION IN THE NEBULIZER T.I.D.. ALBUTEROL HFA( VENTOLIN) 2 PUFFS Q 4-6 HOURS P.R.N. WHEN OUTDOORS (2) Allergic rhinitis: Comment: HE HAS MILDTO MODERATE ALLERGIC RHINITIS AND IS WELL CONTROLLED. Code(s): J30.9 - Allergic rhinitis, unspecified Category: Medical Plan: CONTINUE MONTELUKAST 10 MG DAILY. LORATADINE 10 MG ONCE A DAY P.R.N. (3) Cough: Comment: COUGH IS DUE TO ALLERGIC RHINITIS AND CHRONIC OBSTRUCTIVE PULMONARY DISEASE. Code(s): R05.9 - Cough, unspecified Category: Medical Plan: TREATMENT DESCRIBED UNDER COPD AND ALLERGIC RHINITIS. Coding Level of Care Code Est Pt Level 3 (30532) Diagnoses Asthma-COPD overlap syndrome J44.9 Allergic rhinitis J30.9 Cough R05.9
== END 2024-07-19 15:54 | disposition home or self-care (01) ==
PROVIDERS: PCP Family Medicine; Visit Provider Internal Medicine
DX: J44.9 Chronic obstructive pulmonary disease, unspecified (principal); J30.9 Allergic rhinitis, unspecified; R05.9 Cough, unspecified
CPT/HCPCS: 99213

== ENCOUNTER → 2024-07-19 15:26 | Outpatient (BNVA) | payer OTHER, SELFPAY | PROVIDERS: PCP Family Medicine; Visit Provider Internal Medicine | DX: J44.9 Chronic obstructive pulmonary disease, unspecified (principal); J30.9 Allergic rhinitis, unspecified; R05.9 Cough, unspecified | CPT/HCPCS: 99212 ==

== ENCOUNTER 2024-10-18 14:24 | Outpatient (AMB) | payer OTHER, SELFPAY ==
--- NOTE | 2024-10-18 14:40 | MHC.OFFVIS ---
Vital Signs 10/18/24 14:48 Height 5 ft 6 in Weight 141 lb 1.533 oz BMI 22.8 BP 139/75 Blood Pressure Location Lt brachial Position Sitting Pulse 100 Intake Visit Reasons: Follow up GERD Intake Note: Drake presents in the office as a follow up for GERD. CC: He states that he is still having the same symptoms and has been tkaing famotidine to help - states that it does help him. Allergies No Known Allergies [No Known Allergies*] Allergy (Verified 10/18/24 14:49) HPI HPI Follow up GERD: Details: Assessment & Plan (1) GERD (gastroesophageal reflux disease): Code(s): K21.9 - Gastro-esophageal reflux disease without esophagitis Category: Medical Plan French #Mariposa Live He is here today with his who is supportive. He continues to do well on his famotidine twice a day. He is also careful to watch what he eats avoid to greasy food, and avoid GERD triggers. He has no new medical problems to tell us about today. He continues to be quite happy with his GI regimen. ROV 6 mos. Medications: Refilled famotidine (Pepcid) 40 mg PO BID 60 tabs 6RF 30 days TODAY'S VISIT French #Ariana Smith He is here today with his who is supportive. He continues to do well on his famotidine 40mg bid and he is pleased with his GI regimen. ROV 6 mos. PFSH Medical History Fatigue Cough Allergic rhinitis Asthma-COPD overlap syndrome Surgical History Hx of colonoscopy Hx of cholecystectomy Family History Family/Other No problems noted. Social History Alcohol intake: current Alcohol intake frequency: holidays/special occasions only Patient Tobacco Use Status: Former Tobacco user Review of Systems Const Denies fatigue, Denies fever(s), Denies night sweats, Denies poor appetite and Denies weight loss ENT Reports Normal hearing present, Denies dental pain, Denies dysphagia, Denies hearing loss, Denies mouth pain, Denies odynophagia, Denies throat swelling, Denies tongue swelling and Reports other (Dentition adequate) Card Reports no additional complaints Resp Reports no additional complaints GI Details: Denies abdominal pain, Denies melena, Denies bloating, Denies hematochezia, Denies constipation, Denies GI cramping, Denies dysphagia, Denies excessive flatus, Denies early satiety, Reports heartburn, Denies diarrhea, Denies nausea, Denies odynophagia, Denies vomiting and Denies hematemesis Skin/Breast Denies pruritus, Denies lesions, Denies rash and Denies jaundice Neuro Reports Normal hearing present and Denies Abnormal speech present Endo Denies fatigue Aller/Immun Denies throat swelling and Denies tongue swelling Physical Exam Vital Signs: Last Vital Signs Pulse 100 10/18/24 14:48 BP 139/75 10/18/24 14:48 BMI result Body Mass Index 22.8 Const General: cooperative, no acute distress, well developed and well groomed Nutritional Appearance: average body habitus and well nourished Orientation/consciousness: oriented to person, oriented to place and oriented to time Limitations: language barrier HEENT Head: Yes normocephalic and Yes atraumatic Eyes General: appearance normal, both eyes and all related structures Pupils: Equal, round and reactive pupils present Neck Neck: Yes normal visual inspection and Yes no lymphadenopathy Thyroid: Thyroid normal Resp Effort & Inspection: normal respiratory effort and able to speak in complete sentences Auscultation: clear to auscultation bilaterally Cardio Rate: regular rate Rhythm: regular rhythm Heart sounds: Normal, physiologic split S2 sound present Peripheral pulses: radial pulses present and posterior tibial pulses present GI Inspection: No distended and No Abdominal panniculus present Palpation (GI): Soft to palpation, nontender, no guarding, not rigid and No hepatosplenomegaly present Percussion: Yes normal to percussion Auscultation: normal bowel sounds Rectal Exam - Male: Yes deferred Skin General skin exam: no rashes or lesions noted, turgor normal, skin not dry, no jaundice, No spider nevi and no striae Rashes: no rashes Nails: normal Neuro General: oriented to person, oriented to place and oriented to time Cranial nerves: Yes Equal, round and reactive pupils present and Yes Normal hearing present Speech: No Abnormal speech present Extrem General: Yes normal to inspection, No clubbing, No cyanosis and No edema Psych Appearance: grossly normal and well kempt Mental Status: mental status grossly normal Speech and movement: Normal speech and movement present Affect: normal affect Attitude: cooperative Thought process: Normal thought process present and not confabulating Thought content: Normal thought content present Insight: Limited insight present (Psych) Judgement: Limited judgement present (Psych) Assessment & Plan Assessment & Plan (1) GERD (gastroesophageal reflux disease): Code(s): K21.9 - Gastro-esophageal reflux disease without esophagitis Category: Medical Plan French #Ariana Live He is here today with his who is supportive. He continues to do well on his famotidine 40mg bid and he is pleased with his GI regimen. ROV 6 mos. Medications: Refilled famotidine (Pepcid) 40 mg PO BID 60 tabs 6RF 30 days Coding Level of Care Code Est Pt Level 3 (64563) Diagnoses GERD (gastroesophageal reflux disease) K21.9
[2024-10-18 14:48] VITALS: BP 139/75; PULSE 100; BMI 22.8
--- OUTSIDE RECORDS SUMMARY | 2024-10-18 17:36 | XMS_ITS | Clinical Summary ---
Author Organization [facility] Address [address] [place] [address] Care Team Providers Care Psychiatric Tech Name Role Phone Esperanza Schmidt MD Primary Care Provider [phone] Allergies No known active allergies Medications * This document contains information received from the source organization and may not represent a complete record from that organization. albuterol (Ventolin HFA) 108 (90 Base) MCG/ACT inhaler Ventolin HFA 90 mcg/actuation aerosol inhaler INHALE 2 PUFFS BY MOUTH EVERY 6 HOURS NEEDED FOR SHORTNESS OF BREATH OR FOR WHEEZING 9 Active traZODone (Desyrel) 50 MG tablet trazodone 50 mg tablet TAKE 1 TABLET BY MOUTH AT BEDTIME 1 Active sertraline (Zoloft) 50 MG tablet sertraline 50 mg tablet TAKE 1 TABLET BY MOUTH EVERY DAY Active famotidine (Pepcid) 40 MG tablet famotidine 40 mg tablet TAKE 1 TABLET BY MOUTH TWICE DAILY Active buPROPion SR (Wellbutrin SR) 150 MG 12 hr tablet bupropion HCl SR 150 mg tablet,12 hr sustained-relea se TAKE 1 TABLET BY MOUTH EVERY DAY 1 Active Respiratory Therapy Supplies (Nebulizer Mask Adult) misc 1 Units every 6 (six) hours if needed (wheezing/SOB). Use with nebulizing machine 1 each 3 Active ipratropium-albu terol (Duo-Neb) 0.5-2.5 mg/3 mL nebulizer solutionIndicati ons:Chronic obstructive pulmonary disease, unspecified COPD type (CMS/HCC) INHALE 1 AMPULE USING A NEBULIZER 6 TIMES PER DAY 270 mL 2 02/16/202 4 Active montelukast (Singulair) 10 MG tablet TAKE 1 TABLET BY MOUTH EVERY EVENING 90 tablet 1 4 Active loratadine (Claritin) 10 MG tablet TAKE 1 TABLET BY MOUTH EVERY DAY 90 tablet 1 4 Active albuterol (2.5 MG/3ML) 0.083% nebulizer solutionIndicati ons:Chronic obstructive pulmonary disease, unspecified COPD type (CMS/HCC) INHALE 1 AMPULE USING A NEBULIZER EVERY 4 HOURS NEEDED 90 mL 3 4 Active Umeclidinium [place] (Incruse Ellipta) 62.5 MCG/ACT aerosol powder Inhale 1 Inhalation Once per day. 30 each 11 4 04/04/20 25 Active ipratropium (Atrovent) 0.02 % nebulizer solutionIndicati ons:Moderate chronic obstructive pulmonary disease (CMS/HCC) INHALE 1 AMPULE USING A NEBULIZER FOUR TIMES DAILY 75 mL 5 4 Active Fluticasone-Salm eterol 500-50 MCG/ACT aerosol powder Inhale 1 puff 2 times daily. 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 Foot pain 07/12/2018 Gastroesophageal reflux disease 07/12/2018 Chronic right shoulder pain 04/23/2018 Moderate chronic obstructive pulmonary disease 1 Assessment & Plan (04/04/2024 12:11 PM EDT): Discussed medication refills as needed. Continue to follow up with [employer]. Relevant Medications Umeclidinium [place] (Incruse Ellipta) 62.5 MCG/ACT aerosol powder Assessment & Plan (04/30/2023 8:47 AM EDT): Controlled. Cont current regimen. Assessment & Plan (10/17/2022 1:39 PM EDT): Refill Atrovent. Osteoarthritis 04/23/2018 Immunizations Name Administration Dates Next Due Hep B, adult 03/19/2021,12/26/2020,11/27/2020 Influenza injectable quadriv alent IIV4 with preservative 04/23/2018 Influenza injectable quadriv alent preservative free 04/21/2023,05/08/2021,07/03/2020,07/26 Influenza, seasonal, injecta ble, preservative free 04/04/2024 Moderna Covid-19 Vaccine 12+ 09/26/2020,08/29/19 21 Pneumococcal Conjugate PCV 20 04/21/2023 Pneumococcal Polysaccharide PPSV23 07/26/2019 Tdap 07/26/2019 Social History Tobacco Use Types Packs/Day Years Used Date Smoking Tobacco: Former Cigarettes Smokeless Tobacco: Never Tobacco Cessation:Counseling Given: Not Answered Alcohol Use Standard Drinks/Week Comments Yes 0 (1 standard drink = 0.6 oz pur e alcohol) Depression Answer Date Recorded Patient Health Questionnaire-9 Score 0 10/17/2022 Housing Stability Answer Date Recorded What is your housing situation today? I have danielamarla garcia 03/28/[address] you li ve. Do you have problems with any of the following? None of the above 03/28/2024 Food Insecurity Answer Date Recorded Within the past 12 months, y ou worried that your food would run out before you got money to buy more: Never True 03/28/2024 Within the past 12 months,th e food you bought just didn't last and you didn't have enough money to get more: Never True Transportation Answer Date Recorded In the past 12 months, has l ack of transportation kept you from medical appts, meetings, work or from getting things needed for daily living? No 03/28/2024 Utilities Answer Date Recorded In the past 12 months, has t he electric, gas, oil or water company threatened to shut off services in your home? No 03/28/2024 Depression Answer Date Recorded Patient Health Questionnaire-2 Score 0 10/17/2022 Internet Access Answer Date Recorded Internet Access Q1 Yes 03/28/2024 Internet Access Q2 Not on file 03/28/2024 Sex and Gender Information Value Date Recorded Sex Assigned at Male 05/05/2022 10:34 AM EDT Legal Sex Male 10:34 AM EDT Gender Identity Male 05/05/2022 10:34 AM EDT Sexual Orientation Straight 04/05/2024 10 :12 AM EDT Last Filed Vital Signs Vital Sign Reading Time Taken Comments Blood Pressure 124/84 04/04/2024 11:47 AM EDT Pulse 86 04/04/2024 11:47 AM EDT Temperature 36.9 ??C (98.4 ??F) 04/04/2024 11:47 AM E DT Respiratory Rate 20 04/04/2024 11:47 AM EDT Oxygen Saturation 97% 04/04/2024 11:47 AM EDT Inhaled Oxygen Concentration - - Weight 64.1 kg (141 lb 6.4 oz) 04/04/2024 11:47 AM EDT Height 167 cm (5' 5.75 ) 04/04/2024 11:47 AM EDT Body Mass Index 23 04/04/2024 11:47 AM EDT Plan of Treatment Health Maintenance Due Date Last Done Comments CT Colonography 1962 FIT DNA/Cologuard 1962 FIT 1962 FOBT 1962 Sigmoidoscopy 1962 Alcohol/Substance Use Screening 1974 RSV Patients and Patients Aged 60 years or older (1 - Risk 60-74 years 1-dose series) 2022 Depression Screening 10/18/2023 10/17/2022, 10/18/19 23 SDOH Screening 03/28/2025 03/28/2024 COVID-19 Vaccine ( season) 2025 09/26/2020, 08/29/2020 Postponed from 03/06/2024 (Patient Refused) Tobacco Screening 04/04/2025 04/04/2024 Zoster Vaccines (1 of 2) 04/04/2025 Pos tponed from 2012 (Patient Refused) Colonoscopy 07/13/2028 07/13/2018 Colorectal Cancer Screening 07/13/2028 Lipid Panel 04/07/2029 04/07/2024, 11/14/2020 DTaP/Tdap/Td Vaccines (2 - Td or Tdap) 07/26/2029 07/26/2019 HIV Screening Completed 11/14/2020 Hepatitis C Screening Completed 11/14/2020 Hepatitis B Vaccines Completed 03/19/2021, 12/26/2020, 11/27/2020 Pneumococcal Vaccine: 50+ Years Completed 04/21/2023, 07/26/2019 Influenza Vaccine Completed 04/04/2024, , 05/08/2021, Additional history exists HIB Vaccines Aged Out No longer eligi ble based on patient's age to complete this topic HPV Vaccines Aged Out No longer eligi ble based on patient's age to complete this topic Hepatitis A Vaccines Aged Out No long er eligible based on patient's age to complete this topic IPV Vaccines Aged Out No longer eligi ble based on patient's age to complete this topic Meningococcal Vaccine Aged Out No kaylen ferny eligible based on patient's age to complete this topic RSV under 20 months Aged Out No longe r eligible based on patient's age to complete this topic Rotavirus Vaccines Aged Out No longer eligible based on patient's age to complete this topic Procedures Procedure Name Priority Date/Time Associated Diagnosis Comments LIPID PANEL, STANDARD Routine 04/07/2024 11:19 AM EDT Encounter for health-related screening ZZZ HISTORICAL HEPATITIS C AB W/REFL TO HCV RNA, QN, PCR Routine 11/14/2020 11:09 AM EDT HIV 1/2 ANTIGEN/ANTIBODY, FOURTH GENERATION W/RFL Routine 11/14/2020 11:09 AM EDT HM COLONOSCOPY Routine 07/13/2018 from Last 3 Months or Most Recently Relevant to Health Maintenance Results * Lipid Panel, Standard (04/07/2024 11:19 AM EDT) Triglycerides 68 <150 mg/dL [facility] Comment:Desirable Triglyceri de: less than 150 mg/dLBorderline High Triglyceride 150-199 mg/dLHigh Triglyceride: 200-499 mg/dLVery High Triglyceride: greater than or equal to 5OO mg/dL Cholesterol 176 <200 mg/dL [facility] Comment:Desirable Cholestero l: less than 200 mg/dLBorderline High Cholesterol: 200-239 mg/dLHigh Cholesterol: greater than 239 mg/dL LDL Cholesterol Calculated 86 <100 mg/dL [facility] Comment:Desirable LDL: less than 100 mg/dLNear Optimal/Above Optimal LDL: 110- 129 mg/dLBorderline High LDL: 130-159 mg/dLHigh LDL: 160-189 mg/dLVery High LDL: greater than or equal to 190 mg/dL HDL Cholesterol 77 >40 mg/dL [facility] Comment:Desirable HDL: great er than 40 mg/dL Note: This HDL assay may give artificially low results in patients with liver disease. Blood Venous blood specimen / Unknown 04/07/2024 11:19 AM EDT 04/07/2024 12:58 PM EDT Esperanza Schmidt MD LAB BLOOD ORDERABLES Final Re sult Performing Organization Address City/[facility]/ZIP Co de Phone Number [facility] [address] [place] [address] [phone] * HEPATITIS C AB W/REFL TO HCV RNA, QN, PCR (11/14/2020 11:09 AM EDT) HEPATITIS C ANTIBODY NON-REACT BRIDGETTE NON-REACT BRIDGETTE [facility] INDEX 0.01 <1.00 [facility] Comment: ?? HCV antibody was non-reactive. There is no laboratory ?? evidence of HCV infection. ?? In most cases, no further action is required. However, if recent HCV exposure is suspected, a test for HCV RNA (test code 81518) is suggested. ?? For additional information please refer to http://education.[employer] [facility] [employer]/faq/REW37p2 (This link is being provided for informational/ educational purposes only.) ?? 11/14/2020 11:0 9 AM EDT us Esperanza Schmidt MD HISTORICAL/NON ORDERABLE LABS Final Result Performing Organization Address City/[facility]/ZIP Co de Phone Number [facility] [address] * HIV 1/2 ANTIGEN/ANTIBODY,FOURTH GENERATION W/RFL (11/14/2020 11:09 AM EDT) HIV-1/2 ANTIGEN AND ANTIBODIES, 4TH GENERATION W/ REFLEX NON-REACT BRIDGETTE NON-REACT BRIDGETTE [facility] Comment: HIV-1 antigen and HIV-1/HIV-2 antibodies were not detected. There is no laboratory evidence of HIV infection. ?? PLEASE NOTE: This information has been disclosed to you from records whose confidentiality may be protected by state law. ??If your state requires such protection, then the state law prohibits you from making any further disclosure of the information without the specific written consent of the person to whom it pertains, or as otherwise permitted by law. A general authorization for the release of medical or other information is NOT sufficient for this purpose. ? For additional information please refer to http://education.[employer]/faq/UMH548 (This link is being provided for informational/ educational purposes only.) ? The performance of this assay has not been clinically validated in patients less than 2 years old. ?? 11/14/2020 11:0 9 AM EDT Esperanza Schmidt MD LAB BLOOD ORDERABLES Final Re sult [facility] [address] * Colonoscopy (07/13/2018) Colonoscopy Normal Normal Narrative Yung Grimesba - 07/13/2018 Recommended 10 year follow up Historical Provider HEALTH MAINTENANCE Final Result from Last 3 Months or Most Recently Relevant to Health Maintenance Insurance - [employer] Care Teams Psychiatric Tech Relationship Specialty Start Date End Date Esperanza Schmidt MD [address] [place] [phone] PCP - General Family Medicine 04/02/21 Moo Jewel Hole Gauger 05/04/23
--- OUTSIDE RECORDS SUMMARY | 2024-10-18 17:36 | XMS_ITS | Encounter Summary ---
Author Organization [employer] Address [address] [place] [address] Care Team Providers Care Application Packaging Specialist Name Role Phone Esperanza Schmidt MD Primary Care Provider [phone] Encounter Details Date Type Department Care Team (Late st Contact Info) Description 05/20/2023 Abstract [facility] [address] [place] [address] Esperanza Schmidt MD [address] [place], [place] [phone] Social History Tobacco Use Types Packs/Day Years Used Date Smoking Tobacco: Former Cigarettes Smokeless Tobacco: Never Alcohol Use Standard Drinks/Week Comments Yes 0 (1 standard drink = 0.6 oz pur e alcohol) Depression Answer Date Recorded Patient Health Questionnaire-9 Score 0 10/17/2022 Housing Stability Answer Date Recorded What is your housing situation today? I have danielamarla garcia 04/20/[address] you li ve. Do you have problems with any of the following? None of the above 04/20/2023 Food Insecurity Answer Date Recorded Within the past 12 months, y ou worried that your food would run out before you got money to buy more: Never True 04/20/2023 Within the past 12 months,th e food you bought just didn't last and you didn't have enough money to get more: Never True Transportation Answer Date Recorded In the past 12 months, has l ack of transportation kept you from medical appts, meetings, work or from getting things needed for daily living? No 04/20/2023 Utilities Answer Date Recorded In the past 12 months, has t he [employer], [employer], oil or water company threatened to shut off services in your home? No 04/20/2023 Depression Answer Date Recorded Patient Health Questionnaire-2 Score 0 10/17/2022 Sex and Gender Information Value Date Recorded Sex Assigned at Male 05/05/2022 10:34 AM EDT Legal Sex Male 10:34 AM EDT Gender Identity Male 05/05/2022 10:34 AM EDT Sexual Orientation Straight 04/05/2024 10 :12 AM EDT documented as of this encounter Plan of Treatment Not on file documented as of this encounter Procedures Procedure Name Priority Date/Time Associated Diagnosis Comments COLONOSCOPY Routine 07/13/2018 documented in this encounter Results * Colonoscopy (07/13/2018) Colonoscopy Normal Normal Narrative Penelope Grimes - 07/13/2018 Recommended 10 year follow up us Historical Provider HEALTH MAINTENANCE Final Result documented in this encounter Visit Diagnoses Not on filedocumented in this encounter Additional Health Concerns Assessment Noted Time PHQ-9 Depression Total Score: 0 10/18/19 23 1:13 PM EDT documented as of this encounter Care Teams Application Packaging Specialist Relationship Specialty Start Date End Date Esperanza Schmidt MD [address] [place] [id number] PCP - General Family Medicine 04/02/21 Moo Secondary Spanish Teacher 05/04/23 documented as of this encounter
== END 2024-10-18 15:02 | disposition home or self-care (01) ==
LOC: HO.HGI 14:24
PROVIDERS: PCP Family Medicine; Visit Provider Nurse Practitioner
DX: K21.9 Gastro-esophageal reflux disease without esophagitis (principal)
CPT/HCPCS: 99213

== ENCOUNTER → 2024-10-18 14:24 | Outpatient (BNVA) | payer OTHER, SELFPAY | PROVIDERS: PCP Family Medicine; Visit Provider Nurse Practitioner | DX: K21.9 Gastro-esophageal reflux disease without esophagitis (principal) | CPT/HCPCS: 99212 ==

== ENCOUNTER 2024-11-15 15:19 | Outpatient (AMB) | payer OTHER, SELFPAY ==
[2024-11-15 15:33] VITALS: BP 122/74; PULSE 92; O2SAT 95; BMI 22.9
--- NOTE | 2024-11-15 15:33 | MHC.OFFVIS ---
Vital Signs 11/15/24 15:33 Height 5 ft 6 in Weight 142 lb 3.17 oz BMI 22.9 BP 122/74 Blood Pressure Location Lt brachial Position Sitting Pulse 92 Pulse Source Pulse Oximeter Pulse Oximetry (%) 95 Oxygen Delivery Method Room Air Intake Visit Reasons: COPD Intake Note: pt is here for follow up and states mornings are ruff, but after therapy he is good Vp Genetic Required: No Allergies No Known Allergies [No Known Allergies*] Allergy (Verified 11/15/24 15:41) Medication List - Last Reconciled 11/15/24 by Chelsey Kim MD albuterol sulfate 90 mcg/actuation (Ventolin HFA) 2 puffs PO Q6H PRN famotidine (Pepcid) 40 mg PO BID 30 days fluticasone propion-salmeterol 500-50 mcg/dose 1 ea inhalation BID ipratropium-albuterol 0.5 mg-3 mg(2.5 mg base)/3 mL 3 mL inhalation TID loratadine 10 mg PO DAILY montelukast 10 mg PO BEDTIME Do you need a note to return to daycare/school/sports/work: No HPI HPI COPD: Details: This 63 years old Ukrainian-speaking gentleman who was able to communicate with me in Thai today. He states that his breathing has been. good and stable He does feels somewhat congested in the morning but it clears after using the nebulizer. Also his nasal congestion is off and on and less than before He has been using montelukast only on some days . Overall he is staying very stable. [facility]LY [facility], [facility] Medical History Fatigue Cough Allergic rhinitis Asthma-COPD overlap syndrome Surgical History Hx of colonoscopy Hx of cholecystectomy Family History Family/Other No problems noted. Social History Alcohol intake: current Alcohol intake frequency: holidays/special occasions only Patient Tobacco Use Status: Former Tobacco user Review of Systems Const All systems reviewed & are unremarkable except as noted in HPI and below Eyes Reports no additional complaints ENT Reports nasal congestion (Intermittent, ) Card Denies chest pain, Denies irregular heart rhythm and Denies leg edema Resp Reports as per HPI GI Reports no additional complaints Reports no additional complaints Musc Reports back pain Skin/Breast Reports system reviewed and no additional complaints, except as documented Neuro Reports no additional complaints Psych Reports no additional complaints Endo Reports no additional complaints Aller/Immun Reports no additional complaints Physical Exam Vital Signs: Last Vital Signs Pulse 92 11/15/24 15:33 BP 122/74 11/15/24 15:33 Pulse Ox 95 11/15/24 15:33 Oxygen Delivery Method Room Air 11/15/24 15:33 BMI result Body Mass Index 22.9 Const General: healthy appearing (But of a thin build), comfortable, no acute distress, alert and awake Orientation/consciousness: patient oriented x3 HEENT Head: Yes normal to inspection General nose exam: No nasal polyps present and No nasal discharge present Face and sinus: Yes sinuses nontender Mouth: oropharynx normal Throat: Yes posterior oropharynx normal Eyes General: appearance normal, both eyes and all related structures Neck Neck: Yes normal visual inspection, Yes no lymphadenopathy, Yes trachea midline and Yes no JVD Thyroid: Thyroid normal Chest Chest palpation & inspection: normal inspection of the chest, normal palpation of entire chest wall and no tenderness Resp Other: Percussion note is hyper-resonant. Breath sounds are distant with prolonged expiratory phase. No wheezes rhonchi or crepitations are heard. Cardio Palpation: normal PMI Rate: regular rate Rhythm: regular rhythm Heart sounds: no gallops and no murmurs GI Palpation (GI): Soft to palpation, nontender, No hepatosplenomegaly present and no masses Auscultation: normal bowel sounds Back/Spine/Pelvis Thoracic/Lumbar Spine: thoracic and lumbar spine normal to inspection Skin General skin exam: no rashes or lesions noted Neuro General: patient oriented x3 and no focal motor deficits Cranial nerves: Yes CN's II-XII intact bilaterally Extrem General: Yes normal to inspection, Yes no clubbing, cyanosis or edema and Yes no calf tenderness Psych Appearance: grossly normal and well kempt Speech and movement: Normal speech and movement present Assessment & Plan Assessment & Plan (1) Asthma-COPD overlap syndrome: Comment: HE DOES HAVE RATHER SEVERE DEGREE OF COPD/ASTHMA.OVERLAP SYNDROME . CLINICALLY HE IS DOING WELL ON HIS CURRENT REGIMEN, EXCEPT FOR INTERMITTENT BOUTS OF COUGH HAD SOME CONGESTION IN THE MORNING. THE DESCRIBED SYMPTOMS ARE EXPECTED, BECAUSE OF THE SEVERITY OF HIS COPD. OVERALL HE IS DOING BETTER AND IS MORE STABLE. Code(s): J44.9 - Chronic obstructive pulmonary disease, unspecified Category: Medical Plan: LIST OF MEDS REVIEWED AND ADVISED TO CONTINUE THE SAME. ADVAIR HFA 500 --50 1 INHALATION B.I.D.. IPRATROPIUM- ALBUTEROL SOLUTION IN THE NEBULIZER Q 6 HOURS WHILE AWAKE ( 3 TIMES A DAY) ALBUTEROL HFA 2 PUFFS Q 4-6 HOURS ONLY P.R.N. (2) Cough: Comment: COUGH IS DUE TO ALLERGIC RHINITIS AND CHRONIC OBSTRUCTIVE PULMONARY DISEASE. Code(s): R05.9 - Cough, unspecified Category: Medical Plan: C TREATMENT UNDER ALLERGIC RHINITIS (3) Allergic rhinitis: Comment: HE HAS MILDTO MODERATE ALLERGIC RHINITIS AND IS WELL CONTROLLED . WITH CURRENT TREATMENT Code(s): J30.9 - Allergic rhinitis, unspecified Category: Medical Plan: MONTELUKAST 10 MG DAILY. LORATADINE 10 MG ONCE A DAY ONLY P.R.N.. Coding Level of Care Code Est Pt Level 3 (96060) Diagnoses Asthma-COPD overlap syndrome J44.9 Cough R05.9 Allergic rhinitis J30.9
--- OUTSIDE RECORDS SUMMARY | 2024-11-15 16:13 | XMS_ITS | Encounter Summary ---
Author Organization [employer] Address [address] [facility] [address] [place] [address] Care Team Providers Care Fishing Manager Name Role Phone Esperanza Schmidt MD Primary Care Provider [phone] Encounter Details Date Type Department Care Team ([facility] st Contact Info) Description 05/20/2023 Abstract [facility] [address] [place] [address] Esperanza Schmidt MD [address] [place], [place] [phone] Social History Tobacco Use Types Packs/Day Years [...] the past 12 months, has t he [employer], gas, oil or water [employer] threatened to shut off services in your [...] documented as of this encounter Care Teams Fishing Manager Relationship Specialty Start Date End Date Esperanza Schmidt MD [address] [place] [address] PCP - General Family Medicine 04/02/21 Moo Cultural Historian 05/04/23 documented as of this encounter
--- OUTSIDE RECORDS SUMMARY | 2024-11-15 16:13 | XMS_ITS | Encounter Summary ---
Author Organization [employer] Address [address] [facility] [address] [place] [address] Care Team Providers Care Two Way Radio Installer Name Role Phone Esperanza Schmidt MD Primary Care Provider [phone] Reason for Visit * Reason Comments Med Refill Encounter Details Date Type Department Care Team ([facility] Contact Info) Description 11/14/2024 Refill [facility] [address] [place], [place] [phone] Esperanza Schmidt MD [address] [place] [address] Chronic obstructive pulmonary disease, unspecified COPD type (CMS/HCC) Social History Tobacco Use Types Packs/Day Years Used Date Smoking Tobacco: Former Cigarettes Smokeless Tobacco: Never Alcohol Use Standard Drinks/Week Comments Yes 0 (1 standard drink = 0.6 oz pur e alcohol) Depression Answer Date Recorded Patient Health Questionnaire-9 Score 0 10/17/2022 Housing Stability Answer Date Recorded What is your housing situation today? I have daniela garcia 03/28/[address] you [...] on file documented as of this encounter Visit Diagnoses Diagnosis Chronic obstructive pulmonary disease, unspecified COPD type (CMS/HCC) documented in this encounter Additional Health Concerns Assessment Noted Time PHQ-9 Depression Total Score: 0 10/18/19 23 1:13 PM EDT documented as of this encounter Care Teams Two Way Radio Installer Relationship Specialty Start Date End Date Esperanza Schmidt MD [address] [place] [address] PCP - General Family Medicine 04/02/21 Moo Spring Inspector 05/04/23 documented as of this encounter
--- OUTSIDE RECORDS SUMMARY | 2024-11-15 16:13 | XMS_ITS | Clinical Summary ---
Author Organization [employer] Address [address] [facility] [address] [place] [address] Care Team Providers Care School Photographs Detailer Name Role Phone Esperanza Schmidt MD Primary Care Provider [phone] Allergies No known active allergies Medications * This document contains information received from the source organization and may not represent a complete record from that organization. albuterol (Ventolin HFA) 108 (90 Base) MCG/ACT inhaler Ventolin HFA 90 mcg/actuation aerosol inhaler INHALE 2 PUFFS BY MOUTH EVERY 6 HOURS NEEDED FOR SHORTNESS OF BREATH OR FOR WHEEZING 07/12/19 19 Active traZODone (Desyrel) 50 MG tablet trazodone 50 mg tablet TAKE 1 TABLET BY MOUTH AT BEDTIME 05/08/20 21 Active sertraline (Zoloft) 50 MG tablet sertraline 50 mg tablet TAKE 1 TABLET BY MOUTH EVERY DAY Active famotidine (Pepcid) 40 MG tablet famotidine 40 mg tablet TAKE 1 TABLET BY MOUTH TWICE DAILY Active buPROPion SR (Wellbutrin SR) 150 MG 12 hr tablet bupropion HCl SR 150 mg tablet,12 hr sustained-rele ase TAKE 1 TABLET BY MOUTH EVERY DAY 04/25/20 21 Active Respiratory Therapy Supplies (Nebulizer Mask Adult) misc 1 Units every 6 (six) hours if needed (wheezing/SOB) . Use with nebulizing machine 1 each 04/22/20 23 Active ipratropium-alb uterol (Duo-Neb) 0.5-2.5 mg/3 mL nebulizer solutionIndicat ions:Chronic obstructive pulmonary disease, unspecified COPD type (CMS/HCC) INHALE 1 AMPULE USING A NEBULIZER 6 TIMES PER DAY 270 mL 2 08/21/19 24 Active montelukast (Singulair) 10 MG tablet TAKE 1 TABLET BY MOUTH EVERY EVENING 90 tablet 1 01/13/20 24 Active Umeclidinium Hull (Incruse Ellipta) 62.5 MCG/ACT aerosol powder Inhale 1 Inhalation Once per day. 30 each 11 04/04/20 24 025 Active ipratropium (Atrovent) 0.02 % nebulizer solutionIndicat ions:Moderate chronic obstructive pulmonary disease (CMS/HCC) INHALE 1 AMPULE USING A NEBULIZER FOUR TIMES DAILY 75 mL 5 05/31/20 24 Active Fluticasone-Balaji meterol 500-50 MCG/ACT aerosol powder Inhale 1 puff 2 times daily. INHALE 1 PUFF BY MOUTH TWICE A DAY 60 each 5 05/31/20 24 Active loratadine (Claritin) 10 MG tablet TAKE 1 TABLET BY MOUTH EVERY DAY 90 tablet 1 10/26/19 25 Active albuterol (2.5 MG/3ML) 0.083% nebulizer solutionIndicat ions:Chronic obstructive pulmonary disease, unspecified COPD type (CMS/HCC) INHALE 1 AMPULE USING A NEBULIZER EVERY 4 HOURS NEEDED 90 mL 3 11/16/19 25 Active loratadine (Claritin) 10 MG tablet TAKE 1 TABLET BY MOUTH EVERY DAY 90 tablet 1 01/13/20 24 025 Discontinued albuterol (2.5 MG/3ML) 0.083% nebulizer solutionIndicat ions:Chronic obstructive pulmonary disease, unspecified COPD type (CMS/HCC) INHALE 1 AMPULE USING A NEBULIZER EVERY 4 HOURS NEEDED 90 mL 3 02/17/20 24 025 Discontinued Active Problems Problem Noted Date Diagnosed Date Right hip pain 10/17/2022 Assessment & Plan (10/17/2022 1:38 PM EDT): Patient with R hip replacement and difficulty with ADL's requesting increase in SLIVER LAPPER hours. Foot pain 07/12/2018 Gastroesophageal reflux disease 07/12/2018 Chronic right shoulder pain 04/23/2018 Moderate chronic obstructive pulmonary disease 1 Assessment & Plan (04/04/2024 12:11 PM EDT): Discussed medication refills as needed. Continue to follow up with Sales Service Route Manager. Relevant Medications Umeclidinium Hull (Incruse Ellipta) 62.5 MCG/ACT aerosol powder Assessment & Plan (04/30/2023 8:47 AM EDT): Controlled. Cont current regimen. Assessment & Plan (10/17/2022 1:39 PM EDT): Refill Atrovent. Osteoarthritis 04/23/2018 Encounters Date Type Department Care Team Description 11/14/2024 Refill [facility] [address] [place] [address] Esperanza Schmidt MD Chronic obstructive pulmonary disease, unspecified COPD type ([facility]) 10/23/2024 Refill [facility] [address] [place] [address] Taras Fields MD from Last 3 Months Immunizations Name Administration Dates Next Due Hep [...] your housing situation today? I have daniela radha 03/28/[address] you li [...] the past 12 months, has t he [employer], gas, oil or water company threatened to [...] 23 SDOH Screening 03/28/2025 03/28/2024 COVID-19 Vaccine (3 - season) 2025 09/26/2020, 08/29/2020 Postponed from 03/06/2024 [...] 11:19 AM EDT) Triglycerides 68 <150 mg/dL [facility] Comment:Desirable Triglyceri de: less than 150 mg/dLBorderline High Triglyceride 150-199 mg/dLHigh Triglyceride: 200-499 mg/dLVery High Triglyceride: greater than or equal to 5OO mg/dL Cholesterol 176 <200 mg/dL [facility] Comment:Desirable Cholestero l: less than 200 mg/dLBorderline High Cholesterol: 200-239 mg/dLHigh Cholesterol: greater than 239 mg/dL LDL Cholesterol Calculated 86 <100 mg/dL [facility] Comment:Desirable LDL: less than 100 mg/dLNear Optimal/Above Optimal LDL: 110- 129 mg/dLBorderline High LDL: 130-159 mg/dLHigh LDL: 160-189 mg/dLVery High LDL: greater than or equal to 190 mg/dL HDL Cholesterol 77 >40 mg/dL [facility] Comment:Desirable HDL: great er than 40 mg/dL Note: This HDL assay may give artificially low results in patients with liver disease. Blood Venous blood specimen / Unknown 04/07/2024 11:19 AM EDT 04/07/2024 12:58 PM EDT us Esperanza Schmidt MD LAB BLOOD ORDERABLES Final Re sult [facility] [address] [place] [address] [phone] * HEPATITIS C AB W/REFL TO HCV RNA, QN, PCR (11/14/2020 11:09 AM EDT) HEPATITIS C ANTIBODY NON-REACT BRIDGETTE NON-REACT BRIDGETTE [facility] INDEX 0.01 <1.00 [facility] Comment: ?? HCV antibody was non-reactive. There is no laboratory ?? evidence of HCV infection. ?? In most cases, no further action is required. However, if recent HCV exposure is suspected, a test for HCV RNA (test code 17264) is suggested. ?? For additional information please refer to http://[employer]/faq/MYS23o2 (This link is being provided for informational/ educational purposes only.) ?? 11/14/2020 11:0 9 AM EDT Esperanza Schmidt MD HISTORICAL/NON ORDERABLE LABS Final Result Performing Organization Address City/State/[facility] Co de Phone Number [facility] [address] [place] [address], * HIV 1/2 ANTIGEN/ANTIBODY,FOURTH GENERATION W/RFL (11/14/2020 11:09 AM EDT) HIV-1/2 ANTIGEN AND ANTIBODIES, 4TH GENERATION W/ REFLEX NON-REACT BRIDGETTE NON-REACT BRIDGETTE [facility] Comment: HIV-1 antigen and HIV-1/HIV-2 [...] ? For additional information please refer to http://[employer].FrameBuzz/faq/CVW269 (This link is being provided for informational/ educational purposes only.) ? The performance of this assay has not been clinically validated in patients less than 2 years old. ?? 11/14/2020 11:0 9 AM EDT us Esperanza Schmidt MD LAB BLOOD ORDERABLES Final Re sult [facility] [address] * Hm Colonoscopy (07/13/2018) Colonoscopy Normal Normal Narrative Penelope Grimes - 07/13/2018 Recommended 10 year follow up Historical Provider MD HEALTH MAINTENANCE Final Result from Last 3 Months or Most Recently Relevant to Health Maintenance [place] [address] [place] [address] < 65 Care Teams School Photographs Detailer Relationship Specialty Start Date End Date Esperanza Schmidt MD [address] [place] [address] PCP - General Family Medicine 04/02/21 Moo Manager Agriculture 05/04/23
== END 2024-11-15 15:46 | disposition home or self-care (01) ==
LOC: HO.HPS 15:20
PROVIDERS: PCP Family Medicine; Visit Provider Internal Medicine
DX: J44.9 Chronic obstructive pulmonary disease, unspecified (principal); R05.9 Cough, unspecified; J30.9 Allergic rhinitis, unspecified
CPT/HCPCS: 99213

== ENCOUNTER → 2024-11-15 15:19 | Outpatient (BNVA) | payer OTHER, SELFPAY | PROVIDERS: PCP Family Medicine; Visit Provider Internal Medicine | DX: J44.9 Chronic obstructive pulmonary disease, unspecified (principal); J30.9 Allergic rhinitis, unspecified; R05.9 Cough, unspecified | CPT/HCPCS: 99212 ==

== ENCOUNTER 2025-03-14 15:05 | Outpatient (AMB) | payer OTHER, SELFPAY ==
[2025-03-14 15:06] VITALS: BP 108/68; PULSE 100; O2SAT 96; BMI 22.6
--- NOTE | 2025-03-14 15:06 | MHC.OFFVIS ---
Vital Signs 03/14/25 15:06 Height 5 ft 6 in Weight 139 lb 15.896 oz BMI 22.6 BP 108/68 Blood Pressure Location Lt brachial Position Sitting Pulse 100 Pulse Source Pulse Oximeter Pulse Oximetry (%) 96 Oxygen Delivery Method Room Air Intake Visit Reasons: COPD, Allergic rhinitis Program Coordinator For Residence Life Required: Yes Allergies No Known Allergies (No Known Allergies*) Allergy (Verified 03/14/25 15:14) Medication List - Last Reconciled 03/14/25 by Chelsey Kim MD albuterol sulfate 90 mcg/actuation (Ventolin HFA) 2 puffs PO Q6H PRN famotidine (Pepcid) 40 mg PO BID 30 days fluticasone propion-salmeterol 500-50 mcg/dose 1 ea inhalation BID ipratropium-albuterol 0.5 mg-3 mg(2.5 mg base)/3 mL 3 mL inhalation TID loratadine 10 mg PO DAILY montelukast 10 mg PO BEDTIME Do you need a note to return to daycare/school/sports/work: No HPI HPI COPD: Details: THIS 64 YEARS OLD 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 HIS BREATHING IS OKAY BUT LATELY HE HAS HAD SLIGHT INCREASE IN THE COUGH AND FEELS CONGESTED. THIS GOES ALONG WITH INCREASED NASAL CONGESTION AND POSTNASAL DISCHARGE. NO FEVER OR CHILLS. NO SHORTNESS OF BREATH ON WALKING AROUND. HE DOES USE HIS INHALERS REGULARLY. CLAIMS THAT HE IS NOT SMOKING. [facility] Medical History Fatigue Cough Allergic rhinitis Asthma-COPD overlap syndrome Surgical History Hx of colonoscopy Hx of cholecystectomy Family History Family/Other No problems noted. Social History Alcohol intake: current Alcohol intake frequency: holidays/special occasions only Patient Tobacco Use Status: Former Tobacco user Review of Systems Const All systems reviewed & are unremarkable except as noted in HPI and below Eyes Reports no additional complaints ENT Reports nasal congestion (Intermittent, ) Card Denies chest pain, Denies irregular heart rhythm and Denies leg edema Resp Reports as per HPI GI Reports no additional complaints Reports no additional complaints Musc Reports back pain Skin/Breast Reports system reviewed and no additional complaints, except as documented Neuro Reports no additional complaints Psych Reports no additional complaints Endo Reports no additional complaints Aller/Immun Reports no additional complaints Physical Exam Vital Signs: Last Vital Signs Pulse 100 03/14/25 15:06 BP 108/68 03/14/25 15:06 Pulse Ox 96 03/14/25 15:06 Oxygen Delivery Method Room Air 03/14/25 15:06 BMI result Body Mass Index 22.6 Const General: healthy appearing (But of a thin build), comfortable, no acute distress, alert and awake Orientation/consciousness: patient oriented x3 HEENT Head: Yes normal to inspection General nose exam: No nasal polyps present, No nasal discharge present and Other nasal findings present (DOES HAVE MODERATE NASAL CONGESTION WITH SOME POSTNASAL MUCUS.) Face and sinus: Yes sinuses nontender Mouth: oropharynx normal Throat: Yes posterior oropharynx normal Eyes General: appearance normal, both eyes and all related structures Neck Neck: Yes normal visual inspection, Yes no lymphadenopathy, Yes trachea midline and Yes no JVD Thyroid: Thyroid normal Chest Chest palpation & inspection: normal inspection of the chest, normal palpation of entire chest wall and no tenderness Resp Other: Percussion note is hyper-resonant. Breath sounds are distant with prolonged expiratory phase. No wheezes rhonchi or crepitations are heard. Cardio Palpation: normal PMI Rate: regular rate Rhythm: regular rhythm Heart sounds: no gallops and no murmurs GI Palpation (GI): Soft to palpation, nontender, No hepatosplenomegaly present and no masses Auscultation: normal bowel sounds Back/Spine/Pelvis Thoracic/Lumbar Spine: thoracic and lumbar spine normal to inspection Skin General skin exam: no rashes or lesions noted Neuro General: patient oriented x3 and no focal motor deficits Cranial nerves: Yes CN's II-XII intact bilaterally Extrem General: Yes normal to inspection, Yes no clubbing, cyanosis or edema and Yes no calf tenderness Psych Appearance: grossly normal and well kempt Speech and movement: Normal speech and movement present Assessment & Plan Assessment & Plan (1) Allergic rhinitis: Comment: HE HAS MILDTO MODERATE ALLERGIC RHINITIS AND IS ACTIVE THESE DAYS. I THINK THIS IS CAUSING INCREASED COUGH. Code(s): J30.9 - Allergic rhinitis, unspecified Category: Medical Plan: LORATADINE 10 MG ONCE A DAY P.R.N. CONTINUE MONTELUKAST 10 MG DAILY. FLONASE NASAL SPRAY 2 SPRAY EACH NOSTRIL ONCE A DAY (2) Asthma-COPD overlap syndrome: Comment: HE DOES HAVE RATHER SEVERE DEGREE OF COPD/ASTHMA.OVERLAP SYNDROME . CLINICALLY HE IS DOING WELL ON HIS CURRENT REGIMEN, EXCEPT FOR INTERMITTENT BOUTS OF COUGH HAD SOME CONGESTION IN THE MORNING. THE DESCRIBED SYMPTOMS ARE EXPECTED, BECAUSE OF THE SEVERITY OF HIS COPD. OVERALL HE IS DOING BETTER AND IS MORE STABLE. Code(s): J44.9 - Chronic obstructive pulmonary disease, unspecified Category: Medical Plan: ADVISED TO CONTINUE USING ADVAIR 500-51 INHALATION B.I.D.. ALBUTEROL HFA 2 PUFFS Q 6 HOURS P.R.N.. ALSO MAY USE IPRATROPIUM-ALBUTEROL SOLUTION IN THE NEBULIZER Q 4-6 HOURS P.R.N. WHEN AT HOME Medications: Changed From fluticasone propion-salmeterol 500-50 mcg/dose 1 ea inhalation BID 60 ea 2RF J44.9 - Chronic obstructive pulmonary disease, unspecified To fluticasone propion-salmeterol 500-50 mcg/dose 1 ea inhalation BID 60 ea 4RF 30 days J44.9 - Chronic obstructive pulmonary disease, unspecified Refilled albuterol sulfate 90 mcg/actuation (Ventolin HFA) 2 puffs PO Q6H PRN 18 grams 4RF shortness of breath or wheezing Coding Level of Care Code Est Pt Level 3 (48207) Diagnoses Allergic rhinitis J30.9 Asthma-COPD overlap syndrome J44.9
--- OUTSIDE RECORDS SUMMARY | 2025-03-14 17:28 | XMS_ITS | Clinical Summary ---
Author Organization [employer] Address [address] [facility] [address] [place] [address] Care Team Providers Care Wastewater Treatment Plant Attendant Name Role Phone Esperanza Schmidt MD Primary Care Provider [phone] Allergies No known active allergies Medications * [...] 6 TIMES PER DAY 270 mL 2 4 Active montelukast (Singulair) 10 MG tablet TAKE 1 TABLET BY MOUTH EVERY EVENING 90 tablet 1 4 Active Umeclidinium [place] (Incruse Ellipta) 62.5 MCG/ACT aerosol powder Inhale 1 Inhalation Once per day. 30 each 11 4 04/04/20 25 Active Fluticasone-Salm eterol 500-50 MCG/ACT aerosol powder Inhale 1 puff 2 times daily. INHALE 1 PUFF BY MOUTH TWICE A DAY 60 each 5 4 Active loratadine (Claritin) 10 MG tablet TAKE 1 TABLET BY MOUTH EVERY DAY 90 tablet 1 5 Active albuterol (2.5 MG/3ML) 0.083% nebulizer solutionIndicati ons:Chronic obstructive pulmonary disease, unspecified COPD type (CMS/HCC) INHALE 1 AMPULE USING A NEBULIZER EVERY 4 HOURS NEEDED 90 mL 3 5 Active ipratropium (Atrovent) 0.02 % nebulizer solutionIndicati ons:Moderate chronic obstructive pulmonary disease (CMS/HCC) INHALE 1 AMPULE USING A NEBULIZER FOUR TIMES DAILY 75 mL 5 5 Active Active Problems Problem Noted Date Diagnosed Date Right hip pain 10/17/2022 Assessment & Plan (10/17/2022 1:38 PM EDT): Patient with R hip replacement and difficulty with ADL's requesting increase in HEALTH PSYCHOLOGIST hours. Foot pain 07/12/2018 Gastroesophageal reflux disease 07/12/2018 Chronic right shoulder pain 04/23/2018 Moderate chronic obstructive pulmonary disease 1 Assessment & Plan (04/04/2024 12:11 PM EDT): Discussed medication refills as needed. Continue to follow up with Prior Authorization Technician. Relevant Medications Umeclidinium [place] (Incruse Ellipta) 62.5 MCG/ACT aerosol powder Assessment & Plan (04/30/2023 8:47 AM EDT): Controlled. Cont current regimen. Assessment & Plan (10/17/2022 1:39 PM EDT): Refill Duc. Osteoarthritis 04/23/2018 Encounters Date Type Department Care Team Description 01/19/2025 Telephone [facility] [address] [place], [place] [phone] Esperanza Schmidt MD from Last 3 Months Immunizations Immunization Administration Dates Next Due Hep B, adult [...] 86 04/04/2024 11:47 AM EDT Temperature 36.9 C (98.4 F) 04/04/2024 11:47 AM EDT Respiratory Rate 20 04/04/2024 11:47 AM EDT Oxygen Saturation 97% 04/04/2024 11:47 AM EDT Inhaled Oxygen Concentration - - Weight 64.1 kg (141 lb 6.4 oz) 04/04/2024 11:47 AM EDT Height 167 cm (5' 5.75 ) 04/04/2024 11:47 AM EDT Body Mass Index 23 04/04/2024 11:47 AM EDT Plan of Treatment Upcoming Encounters Date Type Department Care Team (Late st Contact Info) Description 04/19/2025 10:30 AM EDT Office Visit [facility] [address] [place] [address] Esperanza Schmidt MD [address] [place] [address] Health Maintenance Due Date Last Done Comments CT Colonography 1962 FIT DNA/Cologuard 1962 FIT 1962 FOBT 1962 Sigmoidoscopy 1962 Disability Screening 1962 Alcohol/Substance Use Screening 1974 RSV Patients and Patients Aged 60 years or older (1 - Risk 60-74 years 1-dose series) 2022 Depression Screening 10/18/2023 10/17/2022, 10/18/19 23 COVID-19 Vaccine ( season) 2025 09/26/2020, 08/29/2020 Influenza Vaccine (#1) 2025 , 04/21/2023, 05/08/2021, Additional history exists SDOH Screening 03/28/2025 03/28/2024 Tobacco Screening 04/04/2025 04/04/2024 Zoster Vaccines (1 of 2) 04/04/2025 Pos tponed from 2012 (Patient Refused) Colonoscopy 07/13/2028 07/13/2018 Colorectal Cancer Screening 07/13/2028 Lipid Panel 04/07/2029 04/07/2024, 11/14/2020 DTaP/Tdap/Td Vaccines (2 - Td or Tdap) 07/26/2029 07/26/2019 HIV Screening Completed 11/14/2020 Hepatitis C Screening Completed 11/14/2020 Hepatitis B Vaccines Completed 03/19/2021, 12/26/2020, 11/27/2020 Pneumococcal Vaccine: 50+ Years Completed 04/21/2023, 07/26/2019 HIB Vaccines Aged Out No longer eligi [...] patient's age to complete this topic Meningococcal B Vaccine Aged Out No l onger eligible based on patient's age to complete [...] GENERATION W/RFL Routine 11/14/2020 11:09 AM EDT COLONOSCOPY Routine 07/13/2018 from Last 3 Months or Most Recently Relevant to Health Maintenance Results * Lipid Panel, Standard (04/07/2024 11:19 AM EDT) Triglycerides 68 <150 mg/dL [facility] Comment:Desirable Triglyceri de: less than 150 mg/dLBorderline High Triglyceride 150-199 mg/dLHigh Triglyceride: 200-499 mg/dLVery High Triglyceride: greater than or equal to 5OO mg/dL Cholesterol 176 <200 mg/dL [facility] Comment:Desirable Cholestero l: less than 200 mg/dLBorderline High Cholesterol: 200-239 mg/dLHigh Cholesterol: greater than 239 mg/dL LDL Cholesterol Calculated 86 <100 mg/dL [facility] Comment:Desirable LDL: less than 100 mg/dLNear Optimal/Above Optimal LDL: 110- 129 mg/dLBorderline High LDL: 130-159 mg/dLHigh LDL: 160-189 mg/dLVery High LDL: greater than or equal to 190 mg/dL HDL Cholesterol 77 >40 mg/dL [facility] Comment:Desirable HDL: great er than 40 mg/dL Note: This HDL assay may give artificially low results in patients with liver disease. Blood Venous blood specimen / Unknown 04/07/2024 11:19 AM EDT 04/07/2024 12:58 PM EDT us Esperanza Schmidt MD LAB BLOOD ORDERABLES Final Re sult [facility] [address] [place] [phone] * HEPATITIS C AB W/REFL TO HCV RNA, QN, PCR (11/14/2020 11:09 AM EDT) HEPATITIS C ANTIBODY NON-REACT BRIDGETTE NON-REACT BRIDGETTE [facility] INDEX 0.01 <1.00 [facility] Comment: HCV antibody was non-reactive. There is no laboratory evidence of HCV infection. In most cases, no further action is required. However, if recent HCV exposure is suspected, a test for HCV RNA (test code 86704) is suggested. For additional information please refer to http://[employer]/faq/MWC11k7 (This link is being provided for informational/ educational purposes only.) 11/14/2020 11:0 9 AM EDT Esperanza Schmidt MD HISTORICAL/NON ORDERABLE LABS Final Result Performing Organization Address [facility] Co de Phone Number [facility] [address] [place] [address], * HIV 1/2 ANTIGEN/ANTIBODY,FOURTH GENERATION W/RFL (11/14/2020 11:09 AM EDT) HIV-1/2 ANTIGEN AND ANTIBODIES, 4TH GENERATION W/ REFLEX NON-REACT BRIDGETTE NON-REACT BRIDGETTE [facility] Comment: HIV-1 antigen and HIV-1/HIV-2 antibodies were not detected. There is no laboratory evidence of HIV infection. PLEASE NOTE: This information has been disclosed to you from records whose confidentiality may be protected by state law. If your state requires such protection, then the state law prohibits you from making any further disclosure of the information without the specific written consent of the person to whom it pertains, or as otherwise permitted by law. A general authorization for the release of medical or other information is NOT sufficient for this purpose. For additional information please refer to http://[employer]/faq/SDI247 (This link is being provided for informational/ educational purposes only.) The performance of this assay has not been clinically validated in patients less than 2 years old. 11/14/2020 11:0 9 AM EDT Esperanza Schmidt MD LAB BLOOD ORDERABLES Final Re sult Performing Organization Address [facility] de Phone Number [facility] [address] [place] [address], * Hm Colonoscopy (07/13/2018) Colonoscopy Normal Normal Narrative Penelope Grimes - 07/13/2018 Recommended 10 year follow up Historical Provider HEALTH MAINTENANCE Final Result from Last 3 Months or Most Recently Relevant to Health Maintenance Insurance Care Teams Wastewater Treatment Plant Attendant Relationship Specialty Start Date End Date Esperanza Schmidt MD [address] [place] [address] PCP - General Family Medicine 04/02/21 Moo Superintendent Tests 05/04/23
--- OUTSIDE RECORDS SUMMARY | 2025-03-14 17:29 | XMS_ITS | Encounter Summary ---
Author Organization [employer] Address [address] [facility] [address] [place] [address] Care Team Providers Care Cash Teller Name Role Phone Esperanza Schmidt MD Primary Care Provider [phone] Encounter Details Date Type Department Care Team ([facility] st Contact Info) Description 05/20/2023 Abstract [facility] [address] [place] [address] Esperanza Schmidt MD [address] [place], [place] [phone] Social History Tobacco Use Types Packs/Day Years Used Date Smoking Tobacco: Former Cigarettes Smokeless Tobacco: Never Alcohol Use Standard Drinks/Week Comments Yes 0 (1 standard drink = 0.6 oz pur e alcohol) Depression Answer Date Recorded Patient Health Questionnaire-9 Score 0 10/17/2022 Housing Stability Answer Date Recorded What is your housing situation today? I have daniela garcia 04/20/[address] you [...] as of this encounter Plan of Treatment Upcoming Encounters Date Type Department Care Team (Late st Contact Info) Description 04/19/2025 10:30 AM EDT Office Visit [facility] [address] [place] [address] Esperanza Schmidt MD [address] [place] [address] documented as of this encounter Procedures Procedure Name Priority Date/Time Associated Diagnosis Comments COLONOSCOPY Routine 07/13/2018 documented in this encounter Results * Hm Colonoscopy (07/13/2018) Colonoscopy Normal Normal Narrative Penelope Grimes - 07/13/2018 Recommended 10 year follow up us Historical Provider HEALTH MAINTENANCE Final Result documented in this encounter Visit Diagnoses Not on filedocumented in this encounter Additional Health Concerns Assessment Noted Time PHQ-9 Depression Total Score: 0 10/18/19 23 1:13 PM EDT documented as of this encounter Care Teams Cash Teller Relationship Specialty Start Date End Date Esperanza Schmidt MD [address] [place] [address] PCP - General Family Medicine 04/02/21 Moo Health Unit Coordinator 05/04/23 documented as of this encounter
== END 2025-03-14 15:29 | disposition home or self-care (01) ==
LOC: HO.HPS 15:05
PROVIDERS: PCP Family Medicine; Visit Provider Internal Medicine
DX: J30.9 Allergic rhinitis, unspecified (principal); J44.9 Chronic obstructive pulmonary disease, unspecified
CPT/HCPCS: 99213

== ENCOUNTER → 2025-03-14 15:05 | Outpatient (BNVA) | payer OTHER, SELFPAY | PROVIDERS: PCP Family Medicine; Visit Provider Internal Medicine | DX: J44.9 Chronic obstructive pulmonary disease, unspecified (principal); J30.9 Allergic rhinitis, unspecified; Z87.891 Personal history of nicotine dependence | CPT/HCPCS: 99212 ==

== ENCOUNTER 2025-04-18 14:26 | Outpatient (AMB) | payer OTHER, SELFPAY ==
--- NOTE | 2025-04-18 14:31 | A.OFFVIS_ITS ---
Vital Signs 04/18/25 14:33 Height 5 ft 6 in Weight 141 lb 1.533 oz BMI 22.8 BP 132/75 Blood Pressure Location Rt brachial Position Sitting Pulse 82 Intake Visit Reasons: 6 mo follow Gerd Intake Note: Drake presents in 6 months follow up of GERD. CC: Patient reports that he has been doing well with medications prescribed. 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 He continues to do well on his famotidine 40mg bid and he is pleased with his GI regimen. ROV 6 mos. Medications: Refilled famotidine (Pepcid) 40 mg PO BID 60 tabs 6RF 30 days TODAYS VISIT Slovenian Hayes Smith [facility] Medical History Fatigue Cough Allergic rhinitis Asthma-COPD overlap syndrome Surgical History Hx of colonoscopy Hx of cholecystectomy Family History Family/Other No problems noted. Social History Alcohol intake: current Alcohol intake frequency: holidays/special occasions only Patient Tobacco Use Status: Former Tobacco user Review of Systems Const Denies fatigue, Denies fever(s), Denies night sweats, Denies poor appetite and Denies weight loss Eyes Details: glasses Reports requires corrective lenses ENT Reports Normal hearing present, Denies dental pain, Denies dysphagia, Denies hearing loss, Denies mouth pain, Denies odynophagia, Denies throat swelling, Denies tongue swelling and Reports other (Dentition adequate) Card Reports no additional complaints Resp Reports no additional complaints GI Details: Denies abdominal pain, Denies melena, Denies bloating, Denies hematochezia, Denies constipation, Denies GI cramping, Denies dysphagia, Denies excessive flatus, Denies early satiety, Reports heartburn, Denies diarrhea, Denies nausea, Denies odynophagia, Denies vomiting and Denies hematemesis Skin/Breast Denies pruritus, Denies lesions, Denies rash and Denies jaundice Neuro Reports Normal hearing present and Denies Abnormal speech present Endo Denies fatigue Aller/Immun Denies throat swelling and Denies tongue swelling Physical Exam Vital Signs: Last Vital Signs Pulse 82 04/18/25 14:33 BP 132/75 04/18/25 14:33 BMI result Body Mass Index 22.8 Const General: cooperative, no acute distress, well developed and well groomed Nutritional Appearance: average body habitus and well nourished Orientation/consciousness: oriented to person, oriented to place and oriented to time Limitations: language barrier HEENT Head: Yes normocephalic and Yes atraumatic Eyes General: appearance normal, both eyes and all related structures Pupils: Equal, round and reactive pupils present Neck Neck: Yes normal visual inspection and Yes no lymphadenopathy Thyroid: Thyroid normal Resp Effort & Inspection: normal respiratory effort and able to speak in complete sentences Auscultation: clear to auscultation bilaterally Cardio Rate: regular rate Rhythm: regular rhythm Heart sounds: Normal, physiologic split S2 sound present Peripheral pulses: radial pulses present and posterior tibial pulses present GI Inspection: No distended and No Abdominal panniculus present Palpation (GI): Soft to palpation, nontender, no guarding, not rigid and No hepatosplenomegaly present Percussion: Yes normal to percussion Auscultation: normal bowel sounds Rectal Exam - Male: Yes deferred Skin General skin exam: no rashes or lesions noted, turgor normal, skin not dry, no jaundice, No spider nevi and no striae Rashes: no rashes Nails: normal Neuro General: oriented to person, oriented to place and oriented to time Cranial nerves: Yes Equal, round and reactive pupils present and Yes Normal hearing present Speech: No Abnormal speech present Extrem General: Yes normal to inspection, No clubbing, No cyanosis and No edema Psych Appearance: grossly normal and well kempt Mental Status: mental status grossly normal Speech and movement: Normal speech and movement present Affect: normal affect Attitude: cooperative Thought process: Normal thought process present and not confabulating Thought content: Normal thought content present Insight: Fair insight present (Psych) Judgement: Fair judgement present (Psych) Assessment & Plan Assessment & Plan (1) GERD (gastroesophageal reflux disease): Code(s): K21.9 - Gastro-esophageal reflux disease without esophagitis Category: Medical Plan Slovenian #Esperanza Live He continues to do well on his famotidine twice a day with good control of his stomach problems. He remains satisfied with this regimen. Since he has been very stable for quite a long time I suggest we extend his follow-up out to yearly. He is agreeable to this. Return office visit in 1 year Medications: Refilled famotidine (Pepcid) 40 mg PO BID 60 tabs 12RF 30 days Coding Level of Care Code Est Pt Level 3 (31912) Diagnoses GERD (gastroesophageal reflux disease) K21.9
[2025-04-18 14:33] VITALS: BP 132/75; PULSE 82; BMI 22.8
--- OUTSIDE RECORDS SUMMARY | 2025-04-18 17:21 | XMS_ITS | Encounter Summary ---
Author Organization [employer] Address [address] [place] [address] Care Team Providers Care Explosive Operator Fuse Name Role Phone Esperanza Schmidt MD Primary Care Provider [phone] Encounter Details Date Type Department Care Team ([facility] st Contact Info) Description 05/20/2023 Abstract [facility] [address] [place] [address] Esperanza Schmidt MD [address] [place], [place] [id number] Social History Tobacco Use Types Packs/Day Years [...] Description 04/19/2025 10:30 AM EDT Office Visit [facility] MED & PEDS [address] [place] [address] Esperanza Schmidt MD [address] [place] [address] documented as of this encounter Procedures Procedure [...] documented as of this encounter Care Teams Explosive Operator Fuse Relationship Specialty Start Date End Date Esperanza Schmidt MD [address] [place] [address] PCP - General Family Medicine 04/02/21 Moo Thread Inspector 05/04/23 documented as of this encounter
--- OUTSIDE RECORDS SUMMARY | 2025-04-18 17:21 | XMS_ITS | Encounter Summary ---
Author Organization [employer] Address [address] [place] [address] Care Team Providers Care Lands Resource Manager Name Role Phone Esperanza Schmidt MD Primary Care Provider [phone] Reason for Visit * Reason Onset Date Comments Chart Prep 04/18/2025 Encounter Details Date Type Department Care Team ([facility] Contact Info) Description 04/18/2025 Telephone [facility] & PEDS [address] [place], [place] [phone] Esperanza Schmidt MD [address] [place] [address] Chart Prep Social History Tobacco Use Types Packs/Day Years [...] AM EDT documented as of this encounter Miscellaneous Notes * Telephone Encounter - Etta Rosenthal [place] - 04/18/2025 3:23 PM EDT Chart Prep Labs: done Images: done Referrals: complete Vaccines due: due Screenings: not applicable Overdue care gaps: SBIRT, SDOH, PHQ-9, Disability screen, and Tobacco documented in this encounter Plan of Treatment Upcoming Encounters Date Type Department Care Team (Late st Contact Info) Description 04/19/2025 10:30 AM EDT Office Visit [facility] PEDS [address] [place] [address] Esperanza Schmidt MD [address] [place] [address] documented as of this encounter Visit Diagnoses Not on filedocumented in this encounter Additional Health Concerns Assessment Noted Time PHQ-9 Depression Total Score: 0 10/18/19 1:13 PM EDT documented as of this encounter Care Teams Lands Resource Manager Relationship Specialty Start Date End Date Esperanza Schmidt MD [address] [place] [address] PCP - General Family Medicine 04/02/21 Moo Senior Power Scheduler 05/04/23 documented as of this encounter
--- OUTSIDE RECORDS SUMMARY | 2025-04-18 17:21 | XMS_ITS | Clinical Summary ---
Author Organization [employer] Address [address] [place] [address] Care Team Providers Care Beater Lead Name Role Phone Esperanza Schmidt MD Primary Care Provider [phone] Allergies No known active allergies Medications * [...] obstructive pulmonary disease, unspecified COPD type (CMS/HCC) ([facility]) INHALE 1 AMPULE USING A NEBULIZER 6 TIMES PER DAY 270 mL 2 02/16/202 4 Active montelukast (Singulair) 10 MG tablet TAKE 1 TABLET BY MOUTH EVERY EVENING 90 tablet 1 4 Active Umeclidinium Salters (Incruse Ellipta) 62.5 MCG/ACT aerosol powder Inhale 1 Inhalation Once per day. 30 each 11 4 Active Fluticasone-Salm eterol 500-50 MCG/ACT aerosol powder Inhale 1 puff 2 times daily. INHALE 1 PUFF BY MOUTH TWICE A DAY 60 each 5 4 Active loratadine (Claritin) 10 MG tablet TAKE 1 TABLET BY MOUTH EVERY DAY 90 tablet 1 5 Active albuterol (2.5 MG/3ML) 0.083% nebulizer solutionIndicati ons:Chronic obstructive pulmonary disease, unspecified COPD type (CMS/HCC) ([facility]) INHALE 1 AMPULE USING A NEBULIZER EVERY 4 HOURS NEEDED 90 mL 3 5 Active ipratropium (Atrovent) 0.02 % nebulizer solutionIndicati ons:Moderate chronic obstructive pulmonary disease (CMS/HCC) ([facility]) INHALE 1 AMPULE USING A NEBULIZER FOUR TIMES DAILY 75 mL 5 5 Active Active Problems Problem Noted Date Diagnosed Date Right hip pain 10/17/2022 Assessment & Plan (10/17/2022 1:38 PM EDT): Patient with R hip replacement and difficulty with ADL's requesting increase in [employer] hours. Foot pain 07/12/2018 Gastroesophageal reflux disease 07/12/2018 Chronic right shoulder pain 04/23/2018 Moderate chronic obstructive pulmonary disease ( CMS/HCC) 04/23/2018 Assessment & Plan (04/04/2024 12:11 PM EDT): Discussed medication refills as needed. Continue to follow up with Operations Business Partner. Relevant Medications Umeclidinium Salters (Incruse Ellipta) 62.5 MCG/ACT aerosol powder Assessment & Plan (04/30/2023 8:47 AM EDT): Controlled. Cont current regimen. Assessment & Plan (10/17/2022 1:39 PM EDT): Refill Atrovent. Osteoarthritis 04/23/2018 Encounters Date Type Department Care Team Description 04/18/2025 Telephone [facility] PED[facility] [address] [place] [address] Esperanza Schmidt MD Chart Prep 04/12/2025 Patient Outreach [facility] MEDICINE [address] [place], [place] [phone] Esperanza Schmidt MD Pre-visit Planning (Pre visit planning LVM ) 01/19/2025 Telephone [facility] [address] [place] [address] Esperanza Schmidt MD from Last 3 Months [...] your housing situation today? I have daniela sing 03/28/[address] you li [...] Description 04/19/2025 10:30 AM EDT Office Visit [facility] MED & PEDS [address] [place] [address] Esperanza Schmidt MD [address] [place] [address] Health Maintenance Due Date Last Done Comments CT Colonography 1962 FIT DNA/Cologuard 1962 FIT 1962 FOBT 1962 Sigmoidoscopy 1962 Disability Screening 1962 Alcohol/Substance Use Screening 1974 Zoster Vaccines (1 of 2) 2012 RSV Patients and Patients Aged 60 years or older (1 - Risk 60-74 years 1-dose series) 2022 Depression Screening 10/18/2023 10/17/2022, 10/18/19 COVID-19 Vaccine (3 - season) 2025 09/26/2020, 08/29/2020 Influenza Vaccine (#1) 2025 , 04/21/2023, 05/08/2021, Additional history exists SDOH Screening 03/28/2025 03/28/2024 Tobacco Screening 04/04/2025 04/04/2024 Colonoscopy 07/13/2028 07/13/2018 Colorectal Cancer Screening 07/13/2028 [...] 11:19 AM EDT) Triglycerides 68 <150 mg/dL [facility] Comment:Desirable Triglyceri de: less than 150 mg/dLBorderline High Triglyceride 150-199 mg/dLHigh Triglyceride: 200-499 mg/dLVery High Triglyceride: greater than or equal to 5OO mg/dL Cholesterol 176 <200 mg/dL [facility] Comment:Desirable Cholestero l: less than 200 mg/dLBorderline High Cholesterol: 200-239 mg/dLHigh Cholesterol: greater than 239 mg/dL LDL Cholesterol Calculated 86 <100 mg/dL [facility] Comment:Desirable LDL: less than 100 mg/dLNear Optimal/Above Optimal LDL: 110- 129 mg/dLBorderline High LDL: 130-159 mg/dLHigh LDL: 160-189 mg/dLVery High LDL: greater than or equal to 190 mg/dL HDL Cholesterol 77 >40 mg/dL [facility] Comment:Desirable HDL: great er than 40 mg/dL Note: This HDL assay may give artificially low results in patients with liver disease. Blood Venous blood specimen / Unknown 04/07/2024 11:19 AM EDT 04/07/2024 12:58 PM EDT us Esperanza Schmidt MD LAB BLOOD ORDERABLES Final Re sult [facility] [address] [place] [address] [phone] * HEPATITIS C AB W/REFL TO HCV RNA, QN, PCR (11/14/2020 11:09 AM EDT) HEPATITIS C ANTIBODY NON-REACT BRIDGETTE NON-REACT BRIDGETTE [facility] INDEX 0.01 <1.00 [facility] Comment: HCV antibody was non-reactive. There is no laboratory evidence of HCV infection. In most cases, no further action is required. However, if recent HCV exposure is suspected, a test for HCV RNA (test code 21732) is suggested. For additional information please refer to http://Wildfire.InfoGin/faq/CKC66t5 (This link is being provided for informational/ educational purposes only.) 11/14/2020 11:0 9 AM EDT us Esperanza Schmidt MD HISTORICAL/NON ORDERABLE LABS Final Result [facility] [address] [place] [address], * HIV 1/2 ANTIGEN/ANTIBODY,FOURTH GENERATION W/RFL (11/14/2020 11:09 AM EDT) HIV-1/2 ANTIGEN AND ANTIBODIES, 4TH GENERATION W/ REFLEX NON-REACT BRIDGETTE NON-REACT BRIDGETTE [facility] Comment: HIV-1 antigen and HIV-1/HIV-2 [...] purpose. For additional information please refer to http://Wildfire.InfoGin/faq/JGJ371 (This link is being provided for informational/ educational purposes only.) The performance of this assay has not been clinically validated in patients less than 2 years old. 11/14/2020 11:0 9 AM EDT us Esperanza Schmidt MD LAB BLOOD ORDERABLES Final Re sult [facility] [address] * Colonoscopy (07/13/2018) Colonoscopy Normal Normal Penelope Chopra - 07/13/2018 Recommended 10 year follow up us Historical Provider HEALTH MAINTENANCE Final Result from Last 3 Months or Most Recently Relevant to Health Maintenance Insurance [facility] CARE < [address] [place] [id number] Care Teams Beater Lead Relationship Specialty Start Date End Date Esperanza Schmidt MD [address] [place] [phone] PCP - General Family Medicine 04/02/21 Moo Tire Bagger 05/04/23
== END 2025-04-18 14:44 | disposition home or self-care (01) ==
LOC: HO.HGI 14:26
PROVIDERS: PCP Family Medicine; Visit Provider Nurse Practitioner
DX: K21.9 Gastro-esophageal reflux disease without esophagitis (principal)
CPT/HCPCS: 99213

== ENCOUNTER → 2025-04-18 14:26 | Outpatient (BNVA) | payer OTHER, SELFPAY | PROVIDERS: PCP Family Medicine; Visit Provider Nurse Practitioner | DX: K21.9 Gastro-esophageal reflux disease without esophagitis (principal) | CPT/HCPCS: 99212 ==